=== PATIENT | male | born 1945 | race Caucasian/White ===

== ENCOUNTER → 2017-08-22 13:05 | Outpatient (CLI) | payer MEDICARE, OTHER, SELFPAY ==
--- NOTE | 2017-08-22 | DI.RAD.S_ITS ---
PROCEDURE: XR CERVICAL SPINE 4V OR 5V INDICATIONS: NUMBNESS TECHNIQUE: 5 views of the cervical spine acquired. COMPARISON: [facility], , THORACIC SPINE 2 VIEWS, 02/18/2014, 14:19. FINDINGS: Bones: No fractures or dislocations to the C7 level. Grade 1 anterolisthesis of C4 on C5. There is severe degenerative disc disease with disc space narrowing, endplate sclerosis and osteophyte formation at C5-C6 and C6-C7. Bilateral facet arthropathy in cervical spine, severe C4-C5 on the right and C5-C6 on the left. Moderate C3-C4 bilaterally. Oblique images demonstrate foraminal stenoses at C3-C4 and C4-C5 on the right, and C3-C4 and C5-C6 on the left. Soft tissues: No prevertebral soft tissue swelling. IMPRESSION: 1. Severe degenerative disc disease at C5-C6 and C6-C7. 2. Facet arthropathy, severe at C4-C5 on the right and C5-C6 on the left. 3. Bilateral femoral stenosis as described. Dictated by: Timur Aguilar M.D. on 08/22/2017 at 16:10 Approved by: Timur Aguilar M.D. on 08/22/2017 at 16:16
== END ==
PROVIDERS: PCP Internal Medicine; Visit Provider Student in an Organized Health Care Education/Training Program
DX: M50.30 Other cervical disc degeneration, unspecified cervical region (principal); M47.22 Other spondylosis with radiculopathy, cervical region
CPT/HCPCS: 72050

== ENCOUNTER → 2018-01-10 15:55 | Outpatient (CLI) | payer MEDICARE, OTHER, SELFPAY ==
--- NOTE | 2018-01-10 | DI.RAD.S_ITS ---
PROCEDURE: XR CHEST 2V INDICATIONS: ACUTE BRONCHITIS TECHNIQUE: 2 views of the chest were acquired. COMPARISON: [facility], , CHEST 1 VIEW, 01/20/2014, 15:41. FINDINGS: Surgical changes and devices: None. Lungs and pleura: No pleural effusions or pneumothorax. Blunting of the right costophrenic angle as before. No acute consolidation. There is scattered subsegmental atelectasis and/or scarring . Lungs are mildly hyperinflated in keeping with chronic obstructive physiology. Mediastinum: Mediastinal contours are normal. Heart size is normal. Bones and chest wall: No suspicious bony abnormalities. Soft tissues appear unremarkable. IMPRESSION: No acute disease. No interval change Hyperinflated lungs in keeping with chronic obstructive physiology Dictated by: Tc Finn M.D. on 01/10/2018 at 16:38 Approved by: Tc Finn M.D. on 01/10/2018 at 16:40
== END ==
PROVIDERS: PCP Internal Medicine; Visit Provider Internal Medicine
DX: J20.9 Acute bronchitis, unspecified (principal)
CPT/HCPCS: 71046

== ENCOUNTER → 2018-05-24 13:40 | Outpatient (CLI) | payer MEDICARE, OTHER, SELFPAY ==
--- NOTE | 2018-05-24 | DI.RAD.S_ITS ---
PROCEDURE: XR CHEST 2V INDICATIONS: Acute bronchitis TECHNIQUE: 2 views of the chest were acquired. COMPARISON: [facility], CR, XR CHEST 2V, 01/10/2018, 16:04. FINDINGS: Surgical changes and devices: None. Lungs and pleura: Decreased buccal vascular markings and bilateral hilar region are seen with mild bronchial wall thickening consistent with reactive airway disease. No definite focal infiltrate. No pleural effusions or pneumothorax. Mediastinum: Mediastinal contours are normal. Heart size is normal. Bones and chest wall: No suspicious bony abnormalities. Soft tissues appear unremarkable. IMPRESSION: Findings consistent with reactive airway disease such as orchitis or asthma. No definite focal infiltrate. Dictated by: Seun Wheeler M.D. on 05/24/2018 at 14:56 Approved by: Seun Wheeler M.D. on 05/24/2018 at 14:57
== END ==
PROVIDERS: PCP Internal Medicine; Visit Provider Physician Assistant
DX: J20.9 Acute bronchitis, unspecified (principal)
CPT/HCPCS: 71046

== ENCOUNTER → 2018-10-31 12:19 | Outpatient (CLI) | payer MEDICARE, OTHER, SELFPAY ==
--- NOTE | 2018-10-31 | DI.US.S_ITS ---
PROCEDURE: US THYROID INDICATIONS: THYROID NODULE,ABNORMAL WEIGHT LOSS TECHNIQUE: Real-time scanning was performed of the thyroid gland, with image documentation. COMPARISON: None. FINDINGS: Right: Thyroid lobe measures 6.3 x 2.5 x 2.9 cm, and is homogeneous in echotexture. Left: Thyroid lobe measures 4.7 x 1.8 x 2.3 cm, and is homogenous in echotexture. Isthmus: 5.0 mm thick. Nodule number: 1 Location: Right mid Size: 2.4 x 2.2 x 2.2 cm. Composition: Predominantly solid Echogenicity: Hypoechoic Shape: wider than tall. Margins: Smooth Echogenic foci: None Total points: 4 ACR TI-RADS category: Moderately suspicious Nodule number: 2 Location: Right mid Size: 0.8 x 0.9 x 0.8 cm. Composition: Cystic Echogenicity: Anechoic Shape: wider than tall. Margins: Smooth Echogenic foci: None Total points: 0 ACR TI-RADS category: Benign Nodule number: 3 Location: Right mid inferior Size: 0.6 x 0.6 x 0.7 cm. Composition: Predominately solid Echogenicity: Hypoechoic Shape: wider than tall. Margins: Smooth Echogenic foci: None Total points: 4 ACR TI-RADS category: Moderately suspicious Nodule number: 4 Location: Left mid Size: 1.5 x 1.1 x 1.2 cm. Composition: Predominately solid Echogenicity: Hypoechoic Shape: wider than tall. Margins: Smooth Echogenic foci: None Total points: 4 ACR TI-RADS category: Moderately suspicious IMPRESSION: Bilateral thyroid nodules. Recommend sonographically directed fine needle aspiration involving the right # 1 nodule and continued sonographic surveillance as recommended below. ACR TI-RADS definitions and recommendations: TI-RADS 1 (benign): 0 points. FNA not needed. TI-RADS 2 (not suspicious): 2 points. FNA not needed. TI-RADS 3 (mildly suspicious): 3 points. * FNA if 2.5 cm or larger, follow up if 1.5 cm or larger (at 1, 3, and 5 years). TI-RADS 4 (moderately suspicious): 4-6 points. * FNA if 1.5 cm or larger, follow up if 1 cm or larger (at 1, 2, 3, and 5 years). TI-RADS 5 (highly suspicious): 7 points or more. * FNA if 1 cm or larger, follow up if 0.5 cm or larger (every year for 5 years). Dictated by: Chad PALMA Interpreted: Genaro Saonn MD on 10/31/2018 at 15:41 Approved by: Genaro Sanon M.D. on 10/31/2018 at 16:24
[2018-10-31 13:06] LABS: Creatine Kinase 31 U/L (55-170)
[2018-10-31 13:51] LABS: Alanine Aminotransferase 17 IU/L (21-72); Albumin 4.1 g/dL (3.5-5.0); Albumin Globulin Ratio 1.6 (1.0-2.8); Alkaline Phosphatase 56 U/L (38-126); Aspartate Aminotransferase 29 IU/L (17-59); BUN Creatinine Ratio 32.9 (6-22); Bilirubin Total 0.7 mg/dL (0.2-1.3); Blood Urea Nitrogen 23 mg/dL (9-20); Calcium 9.6 mg/dL (8.4-10.2); Carbon Dioxide 27 mmol/L (22-32); Chloride 103 mmol/L (98-107); Estimated Glomerular Filt Rate > 60.0 mL/min (>60); Globulin 2.5 g/dL (1.7-4.1); Glucose 137 mg/dL (80-110); HEMOLYSIS < 15 (0-50); Potassium 4.4 mmol/L (3.4-5.1); Sodium 140 mmol/L (137-145); Total Protein 6.6 g/dL (6.3-8.2)
--- NOTE | 2018-10-31 14:13 | DI.CT.S_ITS ---
PROCEDURE: CT CHEST ABDOMEN W CON INDICATIONS: Abnormal weight loss TECHNIQUE: After the administration of intravenous contrast, 5 mm thick sections acquired from the lung apices to the iliac crests. 5 mm coronal and sagittal reformats were performed, with additional 7 mm coronal MIP reformats through the lungs. For radiation dose reduction, the following was used: automated exposure control, adjustment of mA and/or kV according to patient size. COMPARISON: [facility], CT, THORAX WITHOUT CONTRAST, 10/21/2015, 9:15. FINDINGS: Image quality: Excellent. CHEST: Lungs and pleura: No acute airspace opacities. Nodular scarring within the anterior basilar aspect of the right lower lobe is present, as before. Right posterior lung base scarring is present, as before. Nodular thickening of the minor fissure measuring 5 mm is unchanged. Scarring within the left posterior lung base is present, as before. 4 mm diameter nodule within the left upper lobe. The is unchanged. 2 mm diameter nodule within the superior segment left lower lobe adjacent to major fissure is unchanged. A 4 mm diameter nodular thickening of the superior aspect of the left major fissure is unchanged. No pleural effusions or pneumothorax. Central and peripheral airways appear patent and normal in caliber. Mediastinum: Heart size is normal. No pericardial effusion. The anterior mediastinal soft tissue density focus measuring 29 mm is not significantly changed. Thoracic aorta and central pulmonary arteries are normal in size. Esophagus is normal in caliber. No hiatal hernia. Chest wall: No axillary or supraclavicular adenopathy by size criteria. Thyroid gland demonstrates no change in bilateral low density nodules, largest of which is in the right lobe anteriorly measuring 22 mm. ABDOMEN: Solid organs: Liver is normal in size and enhancement. Gallbladder demonstrates multiple calculi within its lumen. Biliary system is non dilated. Pancreas enhances normally. Spleen is normal in size and enhancement. No adrenal nodules. Kidneys demonstrate normal size and enhancement, without hydronephrosis. Peritoneum and bowel: Bowel loops demonstrate normal wall thickness and caliber. No free fluid or air. Nodes and vessels: No retroperitoneal or mesenteric adenopathy by size criteria. Aorta and inferior vena cava are normal in size. Bones: No suspicious bony lesions. No vertebral body compression fractures. Miscellaneous: No ventral hernias. IMPRESSION: 1. No change in small bilateral pulmonary nodules. 2. Cholelithiasis. 3. Bilateral thyroid nodules as seen by same-day ultrasound. Dictated by: Seun Wheeler M.D. on 10/31/2018 at 16:29 Approved by: Fabricio Hooper M.D. on 10/31/2018 at 16:46
[2018-10-31 15:01] LABS: Lactate Dehydrogenase 324 U/L (313-618)
[2018-11-02 17:02] LABS: Aldolase 3.4 U/L (< 8.2)
[2018-11-02 18:42] LABS: Myoglobin < 26 mcg/L (< 96)
== END ==
PROVIDERS: PCP Internal Medicine; Visit Provider Internal Medicine
DX: E04.2 Nontoxic multinodular goiter (principal); R63.4 Abnormal weight loss; R91.8 Other nonspecific abnormal finding of lung field; K80.20 Calculus of gallbladder without cholecystitis without obstruction; M62.50 Muscle wasting and atrophy, not elsewhere classified, unspecified site
CPT/HCPCS: 36415; 71260; 74160; 76536; 80053; 82085; 82550; 83615; 83874; Q9967

== ENCOUNTER → 2018-11-21 06:48 | Outpatient (CLI) | payer MEDICARE, OTHER, SELFPAY ==
--- NOTE | 2018-11-21 | DI.ECHO.S_ITS ---
[facility] +---------+ : : [address] [place] : : : : [id number] : : : : Phone: [phone]+ Echocardiogram Report + + :Name: JUNE BREWSTER Study Date: 11/21/2018 Height: 71 in : :[facility] Weight: 175 lb: : Gender: Male BSA: 2.0 m2 : :: 1945 Age: 73 yrs BP: 98/55 mmHg: :Reason For Study: AFIB : : Performed By: Lalo Galvez : :Referring: DAVID JANSEN : + + Interpretation Summary The left ventricle is normal in size. Left ventricular ejection fraction is estimated to be 50 +/- 5%. The right ventricle is mildly dilated. The right ventricular systolic function is normal. There is mild to moderate mitral regurgitation. There is moderate tricuspid regurgitation. The right ventricular systolic pressure is estimated to be at least 30 mmHg based on an estimated right atrial pressure of 3 mm Hg. The ascending aorta is mildly enlarged. Procedure: A two-dimensional transthoracic echocardiogram with color flow and Doppler was performed. The study quality was technically good. The patient had a heart rate of 59-82 beats per minute. The patient was in atrial fibrillation with controlled ventricular rate during the exam. Left Ventricle: The left ventricle is normal in size. There is normal left ventricular wall thickness. There is no thrombus. Left ventricular ejection fraction is estimated to be 50 +/- 5%. There are no focal wall motion abnormalities. E/E' med: 10.2. Right Ventricle: The right ventricle is mildly dilated. The right ventricular systolic function is normal. Atria: Both atria are severely dilated. The interatrial septum is intact with no evidence for an atrial septal defect. Mitral Valve: There is mild mitral annular calcification. There is systolic anterior motion of the chordal apparatus. There is mild to moderate mitral regurgitation. Aortic Valve: The aortic valve is trileaflet. The aortic valve is slightly calcified. The aortic valve opens well. There is no aortic valve stenosis. No aortic regurgitation is present. Tricuspid Valve: The tricuspid valve is normal. There is moderate tricuspid regurgitation. The right ventricular systolic pressure is estimated to be at least 30 mmHg based on an estimated right atrial pressure of 3 mm Hg. Pulmonic Valve: The pulmonic valve is normal in structure and function. There is trace pulmonic regurgitation. Great Vessels: The aortic root is normal size. The ascending aorta is mildly enlarged. The pulmonary artery is normal size. The IVC is dilated (diameter is greater than 2.1 cm) yet it collapses greater than 50% with a sniff. This suggests a right atrial pressure of 8 mm Hg. Pericardium/ Pleura There is no pericardial effusion. There is no pleural effusion. MMode/2D Measurements & Calculations LVIDd: 4.7 cm LVOT diam: 2.2 cm LVIDs: 2.8 cm Ao root diam: 3.2 cm FS: 41.5 % Aortic Jxn: 2.8 cm EPSS: 0.14 cm asc Aorta Diam: 3.7 cm IVSd: 1.0 cm Ao Arch Diam (Prox Trans): 2.8 cm LVPWd: 0.90 cm LV lozano. diameter/BSA (cm/m^2): 2.4 LV sys. diameter/BSA (cm/m^2): 1.4 LA dimension: 5.0 cm RA long axis: 7.2 cm LA A2 area: 29.3 cm2 RA area: 30.5 cm2 LA A4 area: 35.6 cm2 RA vol: 109.4 ml LA length (vol): 8.4 cm RA : 54.9 ml/m2 LA vol: 104.7 ml IVC diam: 2.5 cm LA vol index: 52.5 ml/m2 RVD1 (basal): 4.6 cm RVD2 (mid): 4.4 cm Doppler Measurements & Calculations Ao V2 max: 134.7 cm/sec LVOT Max Andres: 83.6 cm/sec Ao V2 mean: 103.8 cm/sec LV V1 max P.8 mmHg Ao max P.3 mmHg LV V1 VTI: 17.7 cm Ao mean P.6 mmHg SLOANE(I,D): 2.5 cm2 Ao V2 VTI: 27.8 cm SLOANE(V,D): 2.5 cm2 sev ratio: 0.64 SLOANE indexed to BSA (cm^2/m^2): 1.3 MV E max andres: 71.4 cm/sec TR max andres: 232.9 cm/sec MV A max andres: 1.5 cm/sec TR max P.8 mmHg MV E/A: 47.9 PA V2 max: 103.5 cm/sec Med Peak E' Andres: 7.0 cm/sec PA V2 mean: 74.8 cm/sec E/E' med: 10.2 PA mean P.4 mmHg Lat Peak E' Andres: 10.3 cm/sec PA pr(Accel): 36.6 mmHg E/E' lat: 6.9 PA Accel Time: 0.08 sec E/e' average: 8.6 MV dec time: 0.17 sec SV(LVOT): 70.4 ml Reading Physician:06:04 PM
== END ==
PROVIDERS: PCP Internal Medicine; Referring Provider Emergency Medicine Emergency Medical Services; Visit Provider Internal Medicine Cardiovascular Disease
DX: I08.1 Rheumatic disorders of both mitral and tricuspid valves (principal); I48.0 Paroxysmal atrial fibrillation; I77.89 Other specified disorders of arteries and arterioles
CPT/HCPCS: 93306

== ENCOUNTER → 2018-12-31 07:56 | Outpatient (CLI) | payer MEDICARE, OTHER, SELFPAY ==
--- NOTE | 2018-12-31 | DI.US.S_ITS ---
PROCEDURE: US FINE NEEDLE ASPIRATION INDICATIONS: BILATERAL THYROID NODULES TECHNIQUE: The indications, alternatives, benefits, risks, and complications of the procedure were explained to the patient. Written informed consent was obtained and placed in the chart. The thyroid region was examined sonographically and a site was chosen for ultrasound guided percutaneous sampling. The skin was prepared and draped in the usual fashion, and anesthetized with 1% lidocaine infiltrated from the skin down to the thyroid gland. Multiple passes were then performed, with contents emptied into an appropriate pathology specimen container. A bandage was applied to the area of access at completion of the study. COMPARISON: None. FINDINGS: Location(s) of lesion(s) sampled: Right thyroid lobe [place]: 25 gauge hypodermic needles. Number of passes: 9 Medications: 1% lidocaine for local anaesthesia. Complications: None. IMPRESSION: Successful ultrasound-guided thyroid nodule fine needle aspiration, with cytology results pending. Please see chart below for management recommendations based on cytology results. [facility] ReportingRecommendationsNon-diagnostic* Repeat US-guided FNA, with on-site cytology evaluation if possible. * Repeated non-diagnostic nodules without high suspicion US features: close observation vs surgical consult. * Consider surgery if nodule has high suspicion US features, grows >20% in 2 dimensions on followup, or patient has clinical risk factors for malignancy. Benign* If nodule has high suspicion US features: repeat US and FNA within 12 months. * If nodule has low to intermediate suspicion US features: repeat US at 12-24 months. If nodule grows (20% increase in at least 2 dimensions, with minimal increase of 2 mm or >50% change in volume), or development of new suspicious US features, then repeat FNA or continue followup. * If nodule has very low suspicion US features: followup US at >24 months. Atypia of undetermined significance, follicular lesion of undetermined significanceRepeat FNA, molecular testing, followup US, or surgical consult.Follicular neoplasm, suspicious for follicular neoplasmSurgical consult; also consider molecular testing. Suspicious for malignancySurgical consult.MalignantSurgical consult. Dictated by: Timur Aguilar M.D. on 12/31/2018 at 11:06 Approved by: Timur Aguilar M.D. on 12/31/2018 at 11:07
--- NOTE | 2018-12-31 | PATH_ITS ---
Note [facility] Accession Number: [id number] TESTS RESULT FLAG UNITS REF RANGE LAB Clinician Provided Cytology Information No. of containers..01 ThinPrep Vial No. of containers..18 Previously Prepared Cytology Slide RIGHT THYROID NODULE DIAGNOSIS: 02 RIGHT THYROID NODULE NONDIAGNOSTIC. BETHESDA CATEGORY I. NONDIAGNOSTIC: CYST FLUID ONLY. COMMENT Only a rare group of benign follicular cells is identified. Overall, there is insufficient cellularity for diagnosis. Pathologist ICD10: 02 E04.1 02 Milady Bermudez MD, Pathologist NPI- [id number] Karson Hawley, Reaming Machine Operator ([facility]) 01 30 CC, PALE PINK, CLEAR RECEIVED: 9 ALCOHOL FIXED AND 9 QUICK STAINED SLIDES WITH 1 RNA VIAL FOR FURTHER TESTING. /VDU 01/01/2019 0802 [facility] FLAG LEGEND: L-Low Normal,H-High Normal,LL-Alert Low,HH-Alert High <-Panic Low,>-Panic High,A-Abnormal,AA-Critical Abnormal Performed at: 01 =Z [facility] [address], [place] [address] Brannon Le MD, 02 [facility] [address] [place] [id number] Milady Bermudez MD, Performed at: 01 [facility] [address], [place], [place] [id number] MD Brannon Le MD Phone: [phone]
--- NOTE | 2018-12-31 09:30 | PATH_ITS ---
Note [facility] Accession Number: [id number] TESTS RESULT FLAG UNITS REF RANGE LAB Clinician Provided Cytology Information No. of containers..01 ThinPrep Vial No. of containers..00 Previously Prepared Cytology Slide LEFT THYROID NODULE DIAGNOSIS: LEFT THYROID NODULE BENIGN. BETHESDA CATEGORY II. SPECIMEN CONSISTS OF BENIGN FOLLICULAR CELLS, HEMOSIDERIN-LADEN MACROPHAGES, COLLOID, AND BLOOD. THIS PATTERN IS CONSISTENT WITH A BENIGN FOLLICULAR NODULE. Pathologist ICD10: 02 E04.1 02 Milady Bermudez MD, Pathologist NPI- [id number] [place], Counsel ([facility]) 01 30 CC, PINK, CLEAR RECEIVED: 5 ALCOHOL FIXED AND 5 QUICK STAINED SLIDES WITH 1 RNA VIAL FOR FURTHER TESTING. /VDU 01/01/2019 0803 [facility] FLAG LEGEND: L-Low Normal,H-High Normal,LL-Alert Low,HH-Alert High <-Panic Low,>-Panic High,A-Abnormal,AA-Critical Abnormal Performed at: 01 =Z [facility] [address] [facility], [place] [address] Brannon Le MD, 02 [facility] [address] [place] [phone] Milady Bermudez MD, Specimen Comment: A duplicate report has been generated due to demographic updates. Performed at: [address] [facility] [address] [facility], [place], [place] [id number] MD Brannon Le MD Phone: [phone]
== END ==
PROVIDERS: PCP Internal Medicine; Visit Provider Physician Assistant
DX: E04.2 Nontoxic multinodular goiter (principal); I48.0 Paroxysmal atrial fibrillation
CPT/HCPCS: 10005; 10006

== ENCOUNTER → 2019-10-11 08:46 | Outpatient (CLI) | payer MEDICARE, OTHER, SELFPAY ==
--- NOTE | 2019-10-11 | DI.RAD.S_ITS ---
PROCEDURE: FL BARIUM SWALLOW W SPEECH INDICATIONS: Dysphagia, unspecified COMPARISON: None. TECHNIQUE: Examination was conducted in conjunction with speech pathology per standard protocol. In the lateral projection, filming was performed of the patient swallowing. AP projection filming may also be performed with patient swallowing. COMPARISON: FINDINGS: Function: The oral preparatory phase appears normal, with proper containment. Laryngeal penetration was visualized with thin liquids. There was also aspiration identified. Some clearance with seen with clearing mechanisms and coughing. Significant pooling of material is seen in the vallecula. With thick liquids and with solid foods there was normal motility and transit of material. Morphology: No cricopharyngeal bar is identified. No cervical esophageal webs. No Zenker's diverticulum. No strictures. IMPRESSION: Laryngeal penetration and mild aspiration with some clearance upon consumption of thin liquids. Please see speech pathology report for further details. Dictated by: Luis Eldridge M.D. on 10/11/2019 at 11:00 Approved by: Luis Eldridge M.D. on 10/11/2019 at 11:03
--- NOTE | 2019-10-11 19:10 | ST.SWALLOW ---
Visit Care Team Role Provider Type Brigid Deluna MD Attending Provider Non-Staff Primary Care Provider Referring Provider Specialty: Internal Medicine Address: [address] [place] [address], [id number] Email: [email or web address] Modified Barium Swallow Study ACCESS MANAGER Modified Barium Swallow Study Start: 10/11/19 16:36 Freq: Status: Active Protocol: Document 10/11/19 16:36 LL (Rec: 10/11/19 17:01 LL [id number]) Modified Barium Swallow Study Total Time Visit Start Time 09:15 Visit Stop Time 09:50 Total Visit Minutes 35 Referral Referring Physician Brigid Deluna MD Reason for Referral Dysphagia Setting Setting Outpatient Care Patient Information Identification Type Name Patient History Ranjeet is an 74-year-old male referred by Dr. Brigid Deluna due to new onset of dysphagia with liquids and weight loss over the last several months. Further case history was obtained prior to MBS procedure. Ranjeet described that he feels the sensation that his swallowing function ?just stops? and that he has extreme difficulty initiating and completing swallows. He reported significant weight loss, at least 15 lbs over the last several months and loss of appetite. Ranjeet consumes smaller portions due to his loss of appetite and swallowing difficulty. He reported that he now consumes more protein shakes to provide the daily nutrition he needs. Subjective Observations Ranjeet arrived on time and provided case history. He was able to follow all instructions. Patient Positioning Position View Lat-A/P Imaging Lateral View Textures Administered Trials Presented Thin Liquid via Spoon,Thin Liquid via Cup,[employer] Liquid via Spoon,[employer] Liquid via Cup,Honey Liquid via Spoon, Pudding Thick Liquid via Spoon ,Regular Textures,Barium Tablet Oral Phase Source: MBSIMP (TM) (C) Bolus Specific Scoring Grid Lip Closure WFL Tongue Control During Bolus Hold WFL Bolus Prep/Mastication WFL Bolus Transport/Lingual Motion Mild Impairment A/P Lingual Propulsion Delay 1-2 second delay Oral Residue Mild Impairment Residue Clearing WFL Nasal Regurgitation No Additional Oral Phase Observations Oral Peripheral Phase: Symmetrical structures. Generalized weakness. Concavity of cheeks (sunken cheeks) likely due to significant weight loss and generalized weakness. Lingual incoordination and fasciculations observed. Ranjeet has upper and lower bridges and caps with natural teeth surrounding implants. Oral Phase: Mildly impaired. Mild oral residue present which cleared with subsequent swallows, not abnormal for intake of barium contrast. Mildly delayed initiation of tongue motion. Pharyngeal Phase Source: MBSIMP (TM) (C) Bolus Specific Scoring Grid Delayed Initiation of Pharyngeal Swallow Yes: bolus head in pyriforms x 1 occurrence Soft Palate Elevation WFL Tongue Base Strength/Range of Motion Moderate Impairment Residue Along the Tongue Base Yes: mild-moderate Clearance of Residue Along Tongue Base Minimal Impairment Laryngeal Elevation Moderate Impairment Anterior Hyoid Movement Moderate Impairment Epiglottic Range of Motion Moderate Impairment Vallecular Residue Yes: moderate Clearance of Vallecular Residue Moderate Impairment Laryngeal Vestibular Closure Moderate Impairment Pharyngeal Stripping Wave Moderate Impairment Posterior Pharyngeal Wall Residue Yes: mild Clearance of Posterior Pharyngeal Wall Minimal Impairment Residue Upper Esophageal Sphincter Opening Mild Impairment Residue in the Pyriform Sinuses Yes: mild Clearance of Residue in the Pyriform Minimal Impairment Sinuses Pharyngoesophageal Backflow Observed No Additional Pharyngeal Phase Observations Pharyngeal Phase: Ranjeet presented with moderately reduced laryngeal elevation and anterior hyoid movement resulting in incomplete to no epiglottic inversion. Due to incomplete to no epiglottic inversion, penetration and aspiration were observed with all trials of thin liquid (e.g ., tsp, small cup sip, small cup sip with chin tuck). Chin tuck was implemented to increase airway protection with thin liquids, however no increase or change in airway protection was observed. Throat clearing and coughing were implemented to expel contrast out of airway with minimal clearance observed. Ranjeet?s coughing and throat clearing appeared weak. Remaining thin contrast silently aspirated. No penetration or aspiration was observed with nectar thick liquid, honey thick liquid, pudding, and pudding with cookie. Due to incomplete to no epiglottic inversion, Ranjeet also presented with moderate vallecular residue and mild- moderate amounts of that residue were observed to be pooling into the pyriform sinuses after the swallow. This mild-moderate amount of pooling from the valleculae to the pyriform sinuses decreases Ranjeet?s airway protection and increases his risk for penetration and/or aspiration after the swallow. Ranjeet independently initiated multiple (2-4) swallows throughout all trials with minimal-mild clearance of pharyngeal residues. A second dry swallow (double swallow) and throat clear with reswallow were implemented to assist in clearing pharyngeal residues to improve Ranjeet?s airway protection. Both compensatory swallow strategies resulted in slightly increased airway protection, however mild pharyngeal residues were still present. It was observed that during Ranjeet?s multiple swallows, the epiglottis would become ?stuck? horizontally angled inferiorly and appeared flaccid. It was also observed that Ranjeet presented with a delayed swallow reflex when consuming thickened liquids, pudding, and pudding with cookie. His initiation of pharyngeal swallow varied throughout the MBS procedure. A majority of the swallows would initiate at the base of the valleculae or posterior laryngeal surface of epiglottis, with one instance of the bolus head in the pyriform sinuses at the time of initiating the swallow. A/P View Textures Administered Trials Presented Barium Tablet A/P View Observations Additional Observations Slowed bolus flow through esophagus and into stomach was observed. Barium tablet did not pass into the stomach until 15-20 seconds after consuming barium tablet. Unable to fully assess pharyngeal contraction. Ranjeet swallowed the tablet before video footage started. Clinical Impressions Dysphagia Type Moderate-severe oropharyngeal dysphagia Findings See above oral and pharyngeal observation summaries. Recommend that Ranjeet consume mechanical soft texture diet with nectar thick liquids with use of several compensatory swallow strategies to clear pharyngeal residue(s), increase airway protection, and reduce risk for aspiration / aspiration pneumonia. Free water protocol with strict oral care recommended. Recommended swallow strategies : upright 90 degree for all oral intake, double swallow and/or throat clear with reswallow after every bite/sip , and small bites/sips. Reviewed results with Ranjeet after MBS. ACCESS MANAGER also called Ranjeet after writing this report to further review results, answer any questions, and review diet recommendations / swallow recommendations until he is able to be seen for outpatient speech therapy. Rehabilitation Potential Fair Patient Appropriate for Therapy Yes Recommendations Diet Liquids Order [employer] Diet Order Mechanical Soft Medication Recommendation As Tolerated,Whole,One at a Time Additional Dietary Needs Single Sips,Controlled Sips Aspiration Precautions Recommended Precautions Upright at 90 Degrees,Small Bites/Sips,Double Swallow Additional Precautions Throat clear with reswallow Treatment Plan Therapy Recommendations Inpatient Speech Therapy Recommended Referrals Primary Care Physician, Neurology Compensatory Strategies Recommendations Sitting Upright (90 deg), Double Swallow,Small Bites and Sips Additional Compensatory Strategies Throat clear with reswallow. Recommended Short Term Goals Ranjeet will tolerate mechanical soft texture diet with nectar thick liquids without any overt s/sx of aspiration. Ranjeet will demonstrate understanding of MBS results, free water protocol, diet recommendations, and compensatory swallow strategies to improve swallow safety. Ranjeet will complete recommended oral motor and laryngeal strengthening exercises to improve swallow function. Ranjeet will perform safe swallow strategies independently to increase safety with oral intake. Forestry Hunter Goals Ranjeet will tolerate least restrictive diet to meet his nutrition and hydration needs. 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 Additional Recommendations/Comments * Recommend outpatient speech therapy to address oropharyngeal dysphagia. * Recommend follow-up with primary care physician. * Recommend neurology consult. Ranjeet reported that he has a neurology appointment at with Dr. Torres on November 14. Recommend that Ranjeet visits with neurologist earlier than November 14.
== END ==
PROVIDERS: PCP Internal Medicine; Referring Provider Internal Medicine; Visit Provider Internal Medicine
DX: R13.10 Dysphagia, unspecified (principal); J98.8 Other specified respiratory disorders
CPT/HCPCS: 74230; 92611

== ENCOUNTER → 2020-02-05 11:12 | Outpatient (ROUT) | payer MEDICARE, OTHER, SELFPAY | PROVIDERS: PCP Internal Medicine; Visit Provider Dermatology | DX: L03.211 Cellulitis of face (principal) | CPT/HCPCS: 87070; 87205 ==

== ENCOUNTER → 2020-03-13 18:34 | Outpatient (ROUT) | payer MEDICARE, OTHER, SELFPAY ==
[2020-03-13 19:10] LABS: HEMOLYSIS < 15 (0-50); Iron 77 ug/dL (49-181)
[2020-03-13 19:11] LABS: Add Manual Diff / Slide Review NO; Basophils Absolute Auto 0 /uL (0-100); Basophils Percent Auto 0.5 % (0-2); Eosinophils Absolute Auto 200 /uL (0-450); Eosinophils Percent Auto 2.9 % (2-4); Hematocrit 41.7 % (41-53); Hemoglobin 13.6 g/dL (13.5-17.5); Lymphocytes Absolute Auto 1900 /uL (1100-4500); Lymphocytes Percent Auto 25.8 % (25-40); Mean Corpuscular HGB Conc 32.7 % (30-36); Mean Corpuscular Hemoglobin 30.9 PG (26-34); Mean Corpuscular Volume 94.6 fL (80-100); Monocytes Absolute Auto 500 /uL (0-900); Monocytes Percent Auto 7.2 % (3-14); Neutrophils Absolute Auto 4700 /uL (1500-7000); Neutrophils Percent Auto 63.6 % (50-75); Platelet Count 213 X10^3/uL (150-400); Red Blood Cell Count 4.41 X10^6/uL (4.5-5.9); Red Cell Distribution Width 12.6 % (11.6-14.8); White Blood Cell Count 7.3 X10^3/uL (4.5-11.0)
[2020-03-13 19:16] LABS: Alanine Aminotransferase 23 IU/L (<50); Albumin 4.1 g/dL (3.5-5.0); Albumin Globulin Ratio 1.9 (1.0-2.8); Alkaline Phosphatase 52 U/L (38-126); Aspartate Aminotransferase 37 IU/L (17-59); BUN Creatinine Ratio 28.9 (6-22); Bilirubin Total 0.6 mg/dL (0.2-1.3); Blood Urea Nitrogen 24 mg/dL (9-20); Calcium 9.3 mg/dL (8.4-10.2); Carbon Dioxide 32 mmol/L (22-32); Chloride 104 mmol/L (98-107); Estimated Glomerular Filt Rate > 60.0 mL/min (>60); Globulin 2.2 g/dL (1.7-4.1); Glucose 87 mg/dL (80-110); HEMOLYSIS < 15 (0-50); Potassium 4.2 mmol/L (3.4-5.1); Sodium 139 mmol/L (137-145); Total Protein 6.3 g/dL (6.3-8.2)
[2020-03-13 19:22] LABS: Percent Iron Saturation 23 % (20-50); Total Iron Binding Capacity 336 ug/dL (261-462); Transferrin 240 mg/dL (206-381)
[2020-03-13 19:48] LABS: Ferritin 24 ng/mL (18-464)
== END ==
PROVIDERS: PCP Internal Medicine; Visit Provider Physician Assistant
DX: I48.0 Paroxysmal atrial fibrillation (principal); R53.1 Weakness; R53.83 Other fatigue
CPT/HCPCS: 80053; 82728; 83540; 83550; 85025

== ENCOUNTER → 2020-05-18 18:23 | Outpatient (ROUT) | payer MEDICARE, OTHER, SELFPAY | PROVIDERS: PCP Internal Medicine; Visit Provider Family Medicine | DX: R39.9 Unspecified symptoms and signs involving the genitourinary system (principal) | CPT/HCPCS: 87077; 87086; 87186 ==

== ENCOUNTER 2021-08-31 12:30 | Outpatient (RCR) | payer MEDICARE, OTHER, SELFPAY ==
--- NOTE | 2021-07-07 19:03 | ST.OPIE ---
Visit Care Team Role Provider Type Kevin Marie MD Family Provider Non-Staff Primary Care Provider Specialty: Internal Medicine Address: [address] [place] [address], [id number] Email: Jatin Bowden MD Attending Provider Physician Referring Provider Specialty: Ear, Nose, Throat Address: [address] [place] [address], [id number] Email: [email or web address] Speech-Language Pathology Initial Evaluation SYSTEM TECHNOLOGIST Clinical Instructor Line Start: 07/07/21 19:02 Freq: Status: Active Protocol: Document 07/07/21 19:02 SYLVAIN (Rec: 07/07/21 19:02 SYLVAIN [id number]) Clinical Instructor Signature Clinical Instructor Clinical Instructor Yes SYSTEM TECHNOLOGIST Clinical Swallow Evaluation Start: 07/07/21 15:10 Freq: Status: Active Protocol: Document 07/07/21 15:11 EK (Rec: 07/07/21 15:14 EK [id number]) Clinical Swallow Evaluation Session Time Visit Start Time 15:30 Visit Stop Time 14:35 Total Visit Minutes 65 Visit Information Visit Number 02/[id number] authorized visits Plan of Care Dates 07/07/2021-10/02/21 Insurance Information Medicare Referral Referring Provider Jatin Bowden Reason for Referral Dysphagia Setting Assessment Location Outpatient Care Visit Type Note Type Initial evaluation Next Note Type Next Note Type Treatment Note Patient Information Identification Type Name,ID Card History Pt is a 76-year-old male who has been experiencing xerostomia, drooling, and difficulty swallowing. Pt describes his swallow as if it shuts down on the right side . He states that he has difficulty getting enough moisture in his mouth to swallow food then when it is swallowed it feels stuck in his throat. Denies any other right sided weakness (but stated that he has overall became weaker in the last several years) and has no known history of strokes. Swallowing difficulties have been occurring since 2019. He previously had a MBSS completed but did not follow up for treatment. The findings of that MBSS indicated that there impaired epiglottic inversion as well as penetration/aspiration on thin liquids. However, upon review of the video today, only one instance of flash penetration noted. Pt reported that difficulty managing saliva has been occurring for approximately the last 6 months and he states that it is embarrassing as it happens at various points throughout the day. Pt reported that he has lost 35 pounds about 2 years which may be partially due to depression and not feeling interested in eating. Pt has been drinking milkshakes to supplement calorie intake and reports no difficulty swallowing the milkshakes. Pt has recently begun taking a anti-depressant and is feeling more balanced. Pt has been to various specialists to rule out neurological diseases and cancer. Subjective Observations Pt arrived on time and unaccompanied. Reported by Patient Other Symptoms Difficulty swallowing liquids, Difficulty swallowing solids, Drooling,Weight loss,Other Comment Feels food is getting stuck in his throat primarily on his right side. Weight loss may be due to depression but pt did note that d/t swallowing difficulties, eating can be a slow process so he is needing to supplement his diet with milkshakes. Pt also reported that he has been biting the inside of his cheek and feeling like it is swollen as a result. Current Diet Regular,Thin liquids Baseline Feeding Method Independent in self-feeding Patient Questionnaire No Objective Assessment Mental Status Alert,Responsive,Cooperative Oral Integrity Excessive saliva/Drooling, Xerostomia/Dry mouth Dentition Within normal limits,Decay Lip Function Mild impairment Observation of Lips at Rest Symmetrical Alternating Pucker/Lip Retraction Incoordination Tongue Function Mild impairment Observations of Tongue at Rest Involuntary movement(s) Tongue Protrusion Within normal limits Tongue Retraction Within normal limits Tongue Lateralization Within normal limits Jaw Function Within normal limits Observations of Jaw at Rest Within normal limits Jaw Opening Within normal limits Jaw Closing Within normal limits Hard/Soft Palate Function Within normal limits Observations of Hard/Soft Palate Within normal limits Nasality Within normal limits Phonation Breathy Respiratory Sufficiency Within normal limits Comment Pt complains of xerostomia and drooling. SYSTEM TECHNOLOGIST did note one instance of a buildup of saliva following alternating smile-pucker. While overall tongue movement appeared to be WNL, a slight tremor of the tongue and lips was noted. Pt demonstrated lack of coordination with alternating air in cheeks and when alternating between a smile and pucker. Food and Liquid Trials Position During Assessment Upright (90 degrees) Liquids Trialed Thin Solids Trialed Regular Administration Type Cup single sip,Cup consecutive sips Oral Impairment Mildly impaired Oral Phase Comments Pt noted that occasionally when drinking water, the water escapes before he is ready for it and that he often has to concentrate while chewing/ swallowing. This may indicate some tongue base weakness. His weakness/lack of coordination with his cheeks and lips may also be contributing to his difficulty with saliva management. When trialling a cracker, pt reported that he felt he needed to concentrate in order to adequately chew the cracker and that he had leftover cracker residue in his mouth after the swallow. This cleared after a small sip of water. Pharyngeal Impairment Mildly impaired Pharyngeal Phase Comments Assessed the pt swallowing water from a cup and regular texture cracker. With both textures, swallow was timely and no obvious signs of penetration/aspiration were noted. Pt reported that he felt residue in his throat with both the cracker and the water but did not feel a need to cough. Provided pt education by explaining the mechanism of the swallow and showing/ explaining to him the results of his 2020 MBSS. The results of that study showed that pt had decreased epiglottic inversion causing leftover residue which may be the reason behind his sensation of food being stuck in his throat. Strategies Attempted Chin tuck,Head rotation Response/Comments Trialed chin tuck, head turn to weak side, and head turn to strong side. Pt reported that head turn to strong side felt the most helpful whereas head turn to weak side made swallowing more difficult. Findings Swallowing Function Oropharyngeal phase dysphagia Severity of Swallow Impairment Mildly impaired Contributing Factors to Swallow Reduced oral strength/ Impairment coordination/sensation,Reduced laryngeal excursion,Excessive pharyngeal residue Prognosis Good Based on Cognitive status,Family support Impact on Safety and Functioning Risk for inadequate nutrition/ hydration Comments Eating is tiring so w/ depression, may be at risk for inadequate nutrition Recommendations Swallowing Treatment Yes Recommended Solids Regular Recommended Liquids Thin Safety Precautions/Swallowing Remain upright (90 degrees) Recommendations during all oral intake,Small bites and sips when eating, Alternate liquids and solids Medication Recommendations As Tolerated Education Patient/Caregiver Education Described results of evaluation,Patient expressed understanding of evaluation, Patient expressed agreement with goals & treatment plans, Patient expressed understanding of safety precautions,Patient expressed understanding of feeding recommendations,Patient requires further education/ training Goals Short-term Goals 1. Pt will independently implement safe swallow strategies. 2. Pt will perform swallow exercises in order to improve orapharyngeal function. Long-term Goals 1. Pt will be consistent with HEP to improve and maintain swallow function. 2. Will tolerate regular textures to increase his comfort during eating to WNL.
--- NOTE | 2021-07-07 19:14 | ST.OPIE ---
Visit Care Team Role Provider Type Kevin Marie MD Family Provider Non-Staff Primary Care Provider Specialty: Internal Medicine Address: [address] [place] [address], [address] Email: Jatin Bowden MD Attending Provider Physician Referring Provider Specialty: Ear, Nose, Throat Address: [address] [place] [address], [address] Email: [email or web address] Speech-Language Pathology Initial Evaluation SALES PLANNER Clinical Instructor Line Start: 07/07/21 19:02 Freq: Status: Active Protocol: Document 07/07/21 19:02 SYLVAIN (Rec: 07/07/21 19:02 SYLVAIN [id number]) Clinical Instructor Signature Clinical Instructor Clinical Instructor Yes SALES PLANNER Clinical Swallow Evaluation Start: 07/07/21 15:10 Freq: Status: Active Protocol: Document 07/07/21 15:11 EK (Rec: 07/07/21 15:14 EK [id number]) Clinical Swallow Evaluation Session Time Visit Start Time 15:30 Visit Stop Time 14:35 Total Visit Minutes 65 Visit Information Visit Number 02/22 authorized visits Plan of Care Dates 07/07/2021-10/02/21 Insurance Information Medicare Referral Referring Provider Jatin Bowden Reason for Referral Dysphagia Setting Assessment Location Outpatient Care Visit Type Note Type Initial evaluation Next Note Type Next Note Type Treatment Note Patient Information Identification Type Name,ID Card History Pt is a 76-year-old male who has been experiencing xerostomia, drooling, and difficulty swallowing. Pt describes his swallow as if it shuts down on the right side . He states that he has difficulty getting enough moisture in his mouth to swallow food then when it is swallowed it feels stuck in his throat. Denies any other right sided weakness (but stated that he has overall became weaker in the last several years) and has no known history of strokes. Swallowing difficulties have been occuring since 2019. He previously had a MBSS completed but did not follow up for treatment. The findings of that MBSS indicated that there impaired epiglottic inversion as well as pentration/aspiration on thin liquids. However, upon review of the video today, only one instance of flash pentration noted. Pt reported that difficulty managing saliva has been occuring for approximately the last 6 months and he states that it is embarrssing as it happens at various points throughout the day. Pt reported that he has lost 35 pounds about 2 years which may be partially due to depression and not feeling interested in eating. Pt has been drinking milkshakes to supplement calorie intake and reports no difficulty swallowing the milkshakes. Pt has recently begun taking a anti-depressant and is feeling more balanced. Pt has been to various specialists to rule out neurological diseases and cancer. Subjective Observations Pt arrived on time and unaccompanied. Reported by Patient Other Symptoms Difficulty swallowing liquids, Difficulty swallowing solids, Drooling,Weight loss,Other Comment Feels food is getting stuck in his throat primarily on his right side. Weight loss may be due to depression but pt did note that d/t swallowing difficulties, eating can be a slow process so he is needing to supplement his diet with milkshakes. Pt also reported that he has been biting the inside of his cheek and feeling like it is swollen as a result. Current Diet Regular,Thin liquids Baseline Feeding Method Independent in self-feeding Patient Questionnaire No Objective Assessment Mental Status Alert,Responsive,Cooperative Oral Integrity Excessive saliva/Drooling, Xerostomia/Dry mouth Dentition Within normal limits,Decay Lip Function Mild impairment Observation of Lips at Rest Symmetrical Alternating Pucker/Lip Retraction Incoordination Tongue Function Mild impairment Observations of Tongue at Rest Involuntary movement(s) Tongue Protrusion Within normal limits Tongue Retraction Within normal limits Tongue Lateralization Within normal limits Jaw Function Within normal limits Observations of Jaw at Rest Within normal limits Jaw Opening Within normal limits Jaw Closing Within normal limits Hard/Soft Palate Function Within normal limits Observations of Hard/Soft Palate Within normal limits Nasality Within normal limits Phonation Breathy Respiratory Sufficiency Within normal limits Comment Pt complains of xerostomia and drooling. SALES PLANNER did note one instance of a buildup of saliva following alternating smile-pucker. While overall tongue movement appeared to be WNL, a slight tremor of the tongue and lips was noted. Pt demonstrated lack of coordination with alternating air in cheeks and when alternating between a smile and pucker. Food and Liquid Trials Position During Assessment Upright (90 degrees) Liquids Trialed Thin Solids Trialed Regular Administration Type Cup single sip,Cup consecutive sips Oral Impairment Mildly impaired Oral Phase Comments Pt noted that occassionally when drinking water, the water escapes before he is ready for it and that he often has to concentrate while chewing/ swallowing. This may indicate some tongue base weakness. His weakness/lack of coordination with his cheeks and lips may also be contributing to his difficulty with saliva management. When trialing a cracker, pt reported that he felt he needed to concentrate in order to adequately chew the cracker and that he had leftover cracker residue in his mouth after the swallow. This cleared after a small sip of water. Pharyngeal Impairment Mildly impaired Pharyngeal Phase Comments Assessed the pt swallowing water from a cup and regular texture cracker. With both textures, swallow was timely and no obvious signs of pentration/aspiration were noted. Pt reported that he felt residue in his throat with both the cracker and the water but did not feel a need to cough. Provided pt education by explaining the mechanism of the swallow and showing/ explaining to him the results of his 2020 MBSS. The results of that study showed that pt had decreased epiglottic inversion causing leftover residue which may be the reason behind his sensation of food being stuck in his throat. Strategies Attempted Chin tuck,Head rotation Response/Comments Trialed chin tuck, head turn to weak side, and head turn to strong side. Pt reported that head turn to strong side felt the most helpful whereas head turn to weak side made swallowing more difficult. Findings Swallowing Function Oropharyngeal phase dysphagia Severity of Swallow Impairment Mildly impaired Contributing Factors to Swallow Reduced oral strength/ Impairment coordination/sensation,Reduced laryngeal excursion,Excessive pharyngeal residue Prognosis Good Based on Cognitive status,Family support Impact on Safety and Functioning Risk for inadequate nutrition/ hydration Comments Eating is tiring so w/ depression, may be at risk for inadequate nutrition Recommendations Swallowing Treatment Yes Recommended Solids Regular Recommended Liquids Thin Safety Precautions/Swallowing Remain upright (90 degrees) Recommendations during all oral intake,Small bites and sips when eating, Alternate liquids and solids Medication Recommendations As Tolerated Education Patient/Caregiver Education Described results of evaluation,Patient expressed understanding of evaluation, Patient expressed agreement with goals & treatment plans, Patient expressed understanding of safety precautions,Patient expressed understanding of feeding recommendations,Patient requires further education/ training Goals Short-term Goals 1. Pt will independetly implement safe swallow strategies. 2. Pt will perform swallow exercises in order to improve orapharyngeal function. Long-term Goals 1. Pt will be consistent with HEP to improve and maintain swallow function. 2. Will tolerate regular textures to increase his comfort during eating to WNL.
--- NOTE | 2021-07-14 17:29 | ST.IPDYTX ---
Visit Care Team Role Provider Type Kevin Marie MD Family Provider Non-Staff Primary Care Provider Specialty: Internal Medicine Address: [address] [place] [address], [address] Email: Jatin Bowden MD Attending Provider Physician Referring Provider Specialty: Ear, Nose, Throat Address: [address] [place] [address], [address] Email: [email or web address] BRANCH OFFICER Dysphagia Treatment BRANCH OFFICER Clinical Instructor Line Start: 07/07/21 19:02 Freq: Status: Active Protocol: Document 07/14/21 15:50 SYLVAIN (Rec: 07/14/21 15:51 SYLVAIN [id number]) Clinical Instructor Signature Clinical Instructor Clinical Instructor Yes BRANCH OFFICER Dysphagia Treatment Start: 07/14/21 11:49 Freq: Status: Active Protocol: Document 07/14/21 11:49 EK (Rec: 07/14/21 11:50 EK [id number]) Dysphagia Treatment Session Time Visit Start Time 08:30 Visit Stop Time 09:20 Total Visit Minutes 50 Visit Information Visit Number 03/25 authorized visits Plan of Care Dates 07/07/2021-10/02/21 Insurance Information Medicare Setting Assessment Location Outpatient Care Visit Type Note Type Treatment Note Next Note Type Next Note Type Treatment Note Patient Information Identification Type Name Subjective Observations Pt arrived on time and unaccompanied. Session conducted and note written by student BRANCH OFFICER Tamiko Goyal. Treatment Liquids Trialed Thin Administration Type Cup Single Sip,Self-Feeding Oral Strategies Upright at 90 degrees Pharyngeal Strategies Sitting Upright (90 deg), Effortful Swallow,Mendelsonn Maneuver,Small Bites and Sips Treatment Activities Trialed sips of water throughout the course of the session. One instance of throat clearing following a swallow, pt reported he felt this may have been due to post nasal drip. Education RE normal vs abnormal swallow function was provided orally, with animated video, and pt's MBSS video. Trained pt in exercises to increase airway protection, posterior oral containment, saliva management, pharyngeal clearance. The pt performed all exercises as instructed. Minimal hyolaryngeal elevation was achieved via Tolu maneuver, but the pt indicated that he will practice the maneuver at home. Will monitor and adapt as needed. Assessment Patient Response to Treatment Good Rehab Potential Good Assessment of Improvement The pt demonstrated excellent understanding of all education and training provided today and was able to perform exercises as instructed. He demonstrated good follow through of HEP by reporting that he performed the the saliva management exercises given to him last week 2-3x a day over the course of the last week. Diet Recommendations Recommendations Continue Current Diet Liquids Order Thin Diet Order Regular Medication Recommendations As Tolerated Aspiration Precautions Recommended Precautions Upright at 90 Degrees,Small Bites/Sips,Effortful Swallow Treatment Plan Appropriate for Continued Therapy Yes Therapy Recommendations Continue POC. Dysphagia Goals 1. Pt will independently implement safe swallow strategies. 2. Pt will perform swallow exercises in order to improve orapharyngeal function.
--- NOTE | 2021-07-28 14:24 | ST.IPDYTX ---
Visit Care Team Role Provider Type Kevin Marie MD Family Provider Non-Staff Primary Care Provider Specialty: Internal Medicine Address: [address] [place] [address], [address] Email: Jatin Bowden MD Attending Provider Physician Referring Provider Specialty: Ear, Nose, Throat Address: [address] [place] [address], [address] Email: [email or web address] DIRECTORY CLERK Dysphagia Treatment DIRECTORY CLERK Clinical Instructor Line Start: 07/07/21 19:02 Freq: Status: Active Protocol: Document 07/28/21 14:23 SYLVAIN (Rec: 07/28/21 14:23 SYLVAIN [id number]) Clinical Instructor Signature Clinical Instructor Clinical Instructor Yes DIRECTORY CLERK Dysphagia Treatment Start: 07/14/21 11:49 Freq: Status: Active Protocol: Document 07/28/21 13:16 EK (Rec: 07/28/21 13:30 EK [id number]) Dysphagia Treatment Session Time Visit Start Time 09:30 Visit Stop Time 09:25 Total Visit Minutes 55 Visit Information Visit Number 04/22 authorized visits Plan of Care Dates 07/07/2021-10/02/21 Insurance Information Medicare Setting Assessment Location Outpatient Care Visit Type Note Type Treatment Note Next Note Type Next Note Type Treatment Note Patient Information Identification Type Name Subjective Observations Pt arrived on time and unaccompanied. No changes to report. Session conducted and note written by student DIRECTORY CLERK Tamiko Goyal under DIRECTORY CLERK supervision. Treatment Liquids Trialed Thin Solids Trialed Dysphagia Mechanical, Mechanical Soft Administration Type Cup Single Sip,Self-Feeding Oral Strategies Upright at 90 degrees, Controlled Bite/Sip Size, Alternate Liquids/Solids Pharyngeal Strategies Sitting Upright (90 deg),Tilt Head Left,Tilt Head Right, Small Bites and Sips,Alternate Liquids/Solids Treatment Activities Education was provided RE the potential effects of open mouth breathing. Pt reported that while he has not yet experienced improvement in his swallowing or saliva management, he does sense an overall increase of his awareness while eating. Provided education RE the specific impacts of recommended exercises (e.g. strengthening tongue base to increase epiglottic inversion). Various swallow strategies were trialed but were discontinued with the exception of head turn to the left as pt reported that strategy to be helpful with regular textures. Assessed pt's swallow ability with cheese and diced peaches. No overt signs of penetration/ aspiration were noted. However , it was observed that pt was taking large bites. Provided education RE the need for smaller bites and thorough chewing in order to reduce pharyngeal residue. Pt reported that peaches were easier to swallow, recommended pt add moisture to dry textures and liquid wash then collaborated with pt on ways to implement this recommendation (i.e. adding condiments such as gravy or butter). Assessment Patient Response to Treatment Good Rehab Potential Good Assessment of Improvement Pt reported that he has been following through with HEP and appeared motivated to continue doing so until next session. Head-turn to the left appeared to be mildly beneficial. Pt was also responsive to recommendations for moistening dry textures as well as increasing his awareness of his breathing posture (i.e. breathing through nose instead of mouth) . Diet Recommendations Recommendations Continue Current Diet Liquids Order Thin Diet Order Regular Medication Recommendations As Tolerated Aspiration Precautions Recommended Precautions Upright at 90 Degrees,Small Bites/Sips,Effortful Swallow Treatment Plan Appropriate for Continued Therapy Yes Therapy Recommendations Continue POC. Dysphagia Goals 1. Pt will independently implement safe swallow strategies. 2. Pt will perform swallow exercises in order to improve orapharyngeal function. 3. Pt will tolerate least restrictive diet.
--- NOTE | 2021-08-31 15:08 | ST.IPDYTX ---
Visit Care Team Role Provider Type Kevin Marie MD Family Provider Non-Staff Primary Care Provider Specialty: Internal Medicine Address: [address] [place] [address], [address] Email: Jatin Bowden MD Attending Provider Physician Referring Provider Specialty: Ear, Nose, Throat Address: [address] [place] [address], [address] Email: [email or web address] FIRE COORDINATOR Dysphagia Treatment FIRE COORDINATOR Clinical Instructor Line Start: 07/07/21 19:02 Freq: Status: Active Protocol: Document 08/31/21 14:50 SYLVAIN (Rec: 08/31/21 14:51 SYLVAIN [id number]) Clinical Instructor Signature Clinical Instructor Clinical Instructor Yes FIRE COORDINATOR Dysphagia Treatment Start: 07/14/21 11:49 Freq: Status: Active Protocol: Document 08/31/21 14:29 EK (Rec: 08/31/21 14:46 EK [id number]) Dysphagia Treatment Session Time Visit Start Time 12:30 Visit Stop Time 13:20 Total Visit Minutes 50 Visit Information Visit Number 05/23 authorized visits Plan of Care Dates 07/07/2021-10/02/21 Insurance Information Medicare Setting Assessment Location Outpatient Care Visit Type Note Type Treatment Note Next Note Type Next Note Type Treatment Note Patient Information Identification Type Name Subjective Observations Pt arrived on time and unaccompanied. Pt reported he feels that his swallow function is slightly worse since last session and feels that he is biting his cheek while chewing. Session conducted and note written by student FIRE COORDINATOR Tamiko Goyal under FIRE COORDINATOR supervision. Treatment Liquids Trialed Thin Solids Trialed Puree,Dysphagia Mechanical, Mechanical Soft,Regular Administration Type Cup Single Sip,Self-Feeding Oral Strategies Upright at 90 degrees, Controlled Bite/Sip Size, Alternate Liquids/Solids Pharyngeal Strategies Sitting Upright (90 deg),Tilt Head Left,Tilt Head Right, Small Bites and Sips,Alternate Liquids/Solids Treatment Activities Assessed pt's swallow ability with cheese, pudding, pudding with [place]ia crackers, and crackers. No overt signs of penetration/aspiration were noted. Overall, oral phase was timely and the pudding was swallowed piecemeal. Pt reported that he has been completing the exercises 3-4 times a week. Provided education RE the importance of completing exercises everyday for continuing progress. Trained pt in new exercise to target inner cheek strength. Pt performed smile-pucker and alternating air from cheek to cheek exercise. FIRE COORDINATOR and FIRE COORDINATOR employee communications intern provided skilled feedback for the pt to make his movements bigger and slower in order to fully exercise the facial muscles. Pt was receptive to feedback. Assessment Patient Response to Treatment Fair Rehab Potential Good Assessment of Improvement While pt has been completing the HEP, he has not been performing at the recommended frequency. Suspect if the pt strictly follows HEP, there will be some improvement. If pt continues to not make significant progress, another MBSS may be warranted to fully assess his swallow function and structures. Diet Recommendations Recommendations Continue Current Diet Liquids Order Thin Diet Order Regular Medication Recommendations As Tolerated Aspiration Precautions Recommended Precautions Upright at 90 Degrees,Small Bites/Sips,Effortful Swallow Treatment Plan Appropriate for Continued Therapy Yes Therapy Recommendations Continue POC. Dysphagia Goals 1. Pt will independently implement safe swallow strategies. 2. Pt will perform swallow exercises in order to improve orapharyngeal function. 3. Pt will tolerate least restrictive diet.
--- NOTE | 2021-09-22 17:17 | ST.IPDYTX ---
Visit Care Team Role Provider Type Kevin Marie MD Family Provider Non-Staff Primary Care Provider Specialty: Internal Medicine Address: [address] [place] [address], [address] Email: Jatin Bowden MD Attending Provider Physician Referring Provider Specialty: Ear, Nose, Throat Address: [address] [place] [address], [address] Email: [email or web address] RECORDS ANALYSIS MANAGER Dysphagia Treatment RECORDS ANALYSIS MANAGER Clinical Instructor Line Start: 07/07/21 19:02 Freq: Status: Active Protocol: Document 08/31/21 14:50 SYLVAIN (Rec: 08/31/21 14:51 SYLVAIN [id number]) Clinical Instructor Signature Clinical Instructor Clinical Instructor Yes RECORDS ANALYSIS MANAGER Dysphagia Treatment Start: 07/14/21 11:49 Freq: Status: Active Protocol: Document 09/22/21 17:14 TIFFANIEK (Rec: 09/22/21 17:16 LNK [id number]) Dysphagia Treatment Visit Type Note Type Discharge Summary Treatment Plan Appropriate for Continued Therapy No: Has not been seen since . No more appts scheduled . D/C
== END 2021-09-29 12:55 ==
LOC: SP 12:30
PROVIDERS: Family Provider Internal Medicine; PCP Internal Medicine; Referring Provider Otolaryngology Facial Plastic Surgery; Visit Provider Otolaryngology Facial Plastic Surgery
DX: R13.12 Dysphagia, oropharyngeal phase (principal)
CPT/HCPCS: 92526; 92610

== ENCOUNTER → 2021-09-08 09:08 | Outpatient (CLI) | payer MEDICARE, OTHER, SELFPAY ==
--- NOTE | 2021-09-08 | DI.MRI.S_ITS ---
PROCEDURE: MR HEAD/BRAIN WO/W CON INDICATIONS: TIA/Paresthesia of skin/pharyngeal dysphagia TECHNIQUE: Noncontrast axial T1 spin echo, axial T2 fast spin echo, sagittal and axial FLAIR, coronal T2 fast spin echo, axial gradient echo, axial diffusion and ADC through the brain. After the administration of contrast, axial and coronal and sagittal T1 spin echo with fat saturation through the brain. COMPARISON: None. FINDINGS: Image quality: Excellent. CSF spaces: Basal cisterns are patent. No extra-axial fluid collections. Ventricles are normal in size and shape. Brain: No midline shift. No intracranial bleeds or masses. No abnormal intracranial enhancement. There is cerebral volume loss for age. There is periventricular white matter chronic small vessel ischemic change. The brainstem appears normal. Diffusion-weighted images demonstrate no acute ischemic insults. No chronic ischemic insults. Normal intravascular flow voids are present. Skull and face: Calvarial marrow is normal in signal. Orbits appear normal. A right lens replacement can be seen. Sinuses: Sinuses and mastoids appear clear. IMPRESSION: Brain MRI within normal limits for age, with brain parenchymal volume loss and chronic small vessel ischemic change. No findings of acute or subacute infarction can be seen. No masses or abnormal enhancement can be seen. Dictated by: Genaro Sanon M.D. on 09/08/2021 at 9:20 Approved by: Genaro Sanon M.D. on 09/08/2021 at 9:21
== END ==
PROVIDERS: Family Provider Internal Medicine; PCP Internal Medicine; Referring Provider Internal Medicine; Visit Provider Family Medicine
DX: R13.13 Dysphagia, pharyngeal phase (principal); G45.9 Transient cerebral ischemic attack, unspecified; R20.2 Paresthesia of skin
CPT/HCPCS: 70553; A9579

== ENCOUNTER → 2022-02-18 09:03 | Outpatient (CLI) | payer MEDICARE, OTHER, SELFPAY ==
--- NOTE | 2022-02-18 | DI.MRI.S_ITS ---
PROCEDURE: MR LUMBAR SPINE WO CON INDICATIONS: Low back pain TECHNIQUE: Noncontrast sagittal T1 spin echo and T2 fast echo, sagittal STIR, and T2 fast spin echo through the lumbar spine. In cases with scoliosis, additional coronal T2 fast spin echo may be performed. COMPARISON: [facility], CT, CT CHEST ABDOMEN PELVIS WITH CONTRAST, 05/27/2019, 12:52. [facility] [place], CR, XR LUMBAR SPINE 2 OR 3 VIEWS, 02/16/2022, 10:17. [facility], MR, MR LUMBAR SPINE WITHOUT CONTRAST, 06/20/2018, 8:46. FINDINGS: Image quality: Excellent. Alignment and Curvature: Minimal retrolisthesis can be seen at T12-L1, L1-L2, and L2-L3. Minimal retrolisthesis is seen at L5-S1. Bone Marrow: Marrow is of normal overall signal. Scattered foci are seen, which are hyperintense on T1-weighted and T2-weighted imaging, which are most consistent with benign vertebral body hemangiomas. No acute vertebral body compression fractures. Spinal Cord: Conus medullaris terminates at the L1 level. Visualized cord demonstrates normal signal and size. Paraspinous Soft Tissues: No paravertebral masses. There is partial visualization of a right renal cyst laterally, measuring 2.5 cm. Lower thoracic spine degenerative changes are noted. T12-L1: Moderate loss of disc height is seen. Loss of disc signal is seen. Moderate generalized disc bulge is seen. Facet there is at least moderate left-sided and moderate to severe right-sided neural foraminal narrowing. There is a degree of compression seen upon the exiting nerve roots. Mild to moderate central canal narrowing is seen. When comparison is made with the prior images, these findings are similar. L1-L2: Mild loss of disc height is seen. Loss of disc signal is seen. Moderate disc bulge is seen, which is eccentric to the right. Moderate facet joint hypertrophy is seen. There is moderate to severe bilateral neural foraminal narrowing seen, with an associated a degree of compression seen upon the exiting nerve roots. Mild central canal narrowing is seen. When comparison is made with the prior images, these findings are similar. L2-L3: Moderate to severe loss of disc height and disc signal can be seen. Reactive marrow endplate changes are seen, which demonstrate mixed T1 weighted and T2-weighted signal, and are attributed to a combination of edema and fatty metaplasia (Modic type I and Modic type II changes). Moderate disc bulge is seen, which is eccentric to the right. Moderate facet hypertrophy is seen, left worse than right. There is at least moderate bilateral neural foraminal narrowing seen. There is a degree of compression seen upon the exiting nerve roots. The degree reactive marrow endplate change is progressed compared to 2019. L3-L4: At least moderate loss disc height and disc signal can be seen. Moderate disc bulge is seen, which is eccentric to the left. There is a superimposed central disc protrusion. Prominent bilateral facet hypertrophy can be seen, including a superiorly projected osteophyte on the right, as on series 4, image 6 and on series 5 images 17 and 18. This is better seen as a bony structure on the prior CT dated 05/27/2019 (series 4, image 46). There is moderate to severe bilateral neural foraminal narrowing seen, with an associated a degree of compression seen upon the exiting nerve roots. Moderate central canal narrowing is seen. When comparison is made with the prior images, these findings are similar. L4-L5: Moderate loss of disc height is seen. Loss of disc signal is seen. Moderate disc bulge is seen, which is eccentric to the right. At least moderate facet hypertrophy is seen. There is moderate to severe right-sided neural foraminal narrowing, with a degree of compression upon the exiting right L4 nerve root. There is moderate left-sided neural foraminal narrowing. Mild central canal narrowing is seen. When comparison is made with the prior images, these findings are similar. L5-S1: Moderate to severe loss of disc height and disc signal can be seen. Reactive marrow endplate changes are seen, which demonstrate mixed T1 weighted and T2-weighted signal, and are attributed to a combination of edema and fatty metaplasia (Modic type I and Modic type II changes). Moderate generalized disc bulge is seen. Moderate facet joint hypertrophy is seen. There is moderate to severe bilateral neural foraminal narrowing seen, with an associated a degree of compression seen upon the exiting nerve roots. The central canal is widely patent. When comparison is made with the prior images, these findings are similar. IMPRESSION: Multiple levels of prominent lumbar spine degenerative change are seen. These are similar to 2019. However, there is progression of reactive marrow endplate change at the L2-L3 level. Dictated by: Genaro Sanon M.D. on 02/18/2022 at 9:29 Approved by: Genaro Sanon M.D. on 02/18/2022 at 9:39
== END ==
PROVIDERS: Family Provider Internal Medicine; PCP Internal Medicine; Referring Provider Physical Medicine & Rehabilitation; Visit Provider Physical Medicine & Rehabilitation
DX: M47.816 Spondylosis without myelopathy or radiculopathy, lumbar region (principal); M47.817 Spondylosis without myelopathy or radiculopathy, lumbosacral region; M54.50 Low back pain, unspecified
CPT/HCPCS: 72148

== ENCOUNTER → 2022-03-23 08:55 | Outpatient (CLI) | payer MEDICARE, OTHER, SELFPAY ==
--- NOTE | 2022-03-23 | DI.RAD.S_ITS ---
PROCEDURE: FL BARIUM SWALLOW W SPEECH INDICATIONS: OROPHARYNGEAL DYSPHAGIA TECHNIQUE: Examination was conducted in conjunction with speech pathology per standard protocol. In the lateral projection, filming was performed of the patient swallowing. AP projection filming may also be performed with patient swallowing. COMPARISON: [facility], , [place] BARIUM SWALLOW W SPEECH, 10/11/2019, 8:04. FINDINGS: Function: The oral preparatory phase appears normal, with proper containment. The subsequent oral propulsive phase, pharyngeal phase, and esophageal phase of swallowing also appear normal with all proffered substances. Trace laryngotracheal penetration. No connie aspiration. 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 Morphology: No cricopharyngeal bar is identified. No cervical esophageal webs. No Zenker's diverticulum. No strictures. IMPRESSION: 1. Follicular pooling of different consistencies. 2. Trace laryngeal penetration. No connie aspiration. 3. Please see speech pathologist's report. Dictated by: Timur Aguilar M.D. on 03/23/2022 at 13:57 Approved by: Timur Aguilar M.D. on 03/23/2022 at 13:59
--- NOTE | 2022-03-24 16:56 | ST.SWALLOW ---
Visit Care Team Role Provider Type Kevin Marie MD Family Provider Physician Primary Care Provider Specialty: Internal Medicine Address: [address] [place] [address], [id number] Email: Yaya Erickson MD Attending Provider Non-Staff Referring Provider Specialty: Medical Address: [address] [place] [address] [id number], [place], [address] Email: Modified Barium Swallow Study [employer] Modified Barium Swallow Study Start: 03/24/22 09:02 Freq: Status: Active Protocol: Document 03/23/22 09:03 LNK (Rec: 03/24/22 09:36 LNK [id number]) Modified Barium Swallow Study Total Time Visit Start Time 09:30 Visit Stop Time 10:15 Total Visit Minutes [address] Erickson Reason for Referral dysphagia Setting Setting Outpatient Care Patient Information Identification Type Name,Date of Patient History Pt was seen for a Modified Barium Swallow Study (MBSS) at the referral of his physician , Dr. Erickson at the [facility]. According to the pt he has been having increasing difficulty swallowing. He described his swallow as food getting stuck in the mid neck area and not going into his esophagus. Pt reported that, with solids, he needs to bring the bolus back up into his mouth several times to rechew and attemopt swallowing again. With liquids, the pt noted that he will sometines choke , but that his cough is not effective (i.e., productive). He added that he has been drooling a lot lately pointing to the lateral corners of his mouth. When asked about previous injuries and/or prior diagnoses, the pt reoprted that the thinks Donte on the Parkinson'e pathway and that he is going through several tests re: PD. Subjective Observations Pt was seated inthefluoroscopic chair with directions andinstructions provided. Pt noted that he has a previous MBS at [facility] 2 years ago, and was familiar withthe procedure. Patient Positioning Position View Lat-A/P Imaging Lateral View Textures Administered Trials Presented Thin Liquid via Spoon,Thin Liquid via Cup,[place] Liquid via Cup,Pudding Thick Liquid via Spoon,Regular Textures, Barium Tablet Oral Phase Source: MBSIMP (TM) (C) Bolus Specific Scoring Grid Lip Closure Minimal Impairment Tongue Control During Bolus Hold Mild Impairment Bolus Prep/Mastication Mild Impairment A/P Lingual Propulsion Delay Yes: A/P propusion delay with solids/ tablet Number of Seconds Delayed (seconds) 120 seconds with tablet Oral Residue Mild Impairment Residue Clearing Minimal Impairment Nasal Regurgitation No Additional Oral Phase Observations OME results indicated pt' structures were WNL. DKS indicated speed and accuracy of structured to be WNL. ORAL PHASE OBSERVATIONS: Mildly impaired. Mild oral residue present which did not clear with subsequent swallows. Increased residue noted following semi-solid and solid trials. A/P lingual propulsion for solid trials was discoordinated, rocking and delayed. With the AP view of the barium tablet, the pt was unable to transport the tablet for approximately 2 minutes. Pharyngeal Phase Source: MBSIMP (TM) (C) Bolus Specific Scoring Grid Delayed Initiation of Pharyngeal Swallow Yes: Bolus head to the pyriform sinus observed x2 Soft Palate Elevation No Impairment (WNL) Tongue Base Strength/Range of Motion Moderate Impairment Residue Along the Tongue Base Yes Clearance of Residue Along Tongue Base Moderate Impairment Laryngeal Elevation Moderate Impairment Anterior Hyoid Movement Moderate Impairment Epiglottic Range of Motion Moderate Impairment Vallecular Residue Yes Clearance of Vallecular Residue Moderate Impairment Laryngeal Vestibular Closure Moderate Impairment Pharyngeal Stripping Wave Moderate Impairment Posterior Pharyngeal Wall Residue Yes Clearance of Posterior Pharyngeal Wall Moderate Impairment Residue Upper Esophageal Sphincter Opening Moderate Impairment Residue in the Pyriform Sinuses No: trace to minimal Esophageal Clearance Upright Position WFL Pharyngoesophageal Backflow Observed No Additional Pharyngeal Phase Observations Moderate reduction in tongue base strength was noted. This weakness negatively impacted hyolaryngeal elevation as well as epiglottal inversion. Inversion of the epiglottis ranged from no inversion to partial inversion with the epiglottis at a horizontal position and the tip curled upward against the posterior pharyngeal wall. Due to incomplete to no epiglottic inversion, penetration was observed with trials of thin liquid (e.g., tsp, small cup sip and with a chin tuck). Chin tuck was implemented to increase airway protection with thin liquids, however, there was no inversion of the epiglottis and increased contrast penetration into the laryngeal vestibule ( Pentration Aspiration Scale=3) . Penetration was observed with liquids x4. No penetration observed with solids. When penetration occurred, the pt was cued to cough (no reflexive cough), which was not effective in clearing residue from laryngx. There was no airway penetration with nectar thick liquids. No tracheal aspiration was observed. For all trials, there was significant valecullar pooling that did not clear despite subsequent swallows and liquid washes. At one point the pt regurgitated the bolus from the valeculla, chewed the bolus and again attempted to swallow. For the solid/semi- solid trials, the UES extension and duration appeared to be restricted. The pt required several swallow attempts r clear the bolus in to the esophagus. liquid wash to clear the valecullar pooling was partially affective. A/P View Textures Administered Trials Presented Thin Liquid via Cup,Barium Tablet A/P View Observations Additional Observations Slowed bolus flow through esophagus and into stomach was observed. Unable to fully assess pharyngeal contraction. Clinical Impressions Dysphagia Type oropharyngeal dysphagia Findings See above oral and pharyngeal observation summaries. These results were compared to those observed in 2019 MBS. For the oral phase, there is a significant decline in the pt' s ability to masticate and propel the bolus to the pharynx. In the 2019 MBS, the pt's oral phase was described as mildly impaired. The results of the current MBS indicate a moderate impairment. Relative to the pharyngeal phase, there are minimal changes observed between the two MBS studies. Recommend that pt consume mechanical soft texture diet with nectar thick liquids with use of swallow strategies to clear pharyngeal residue(s), increase airway protection, and reduce risk for aspiration / aspiration pneumonia. Swallowing therapy is recommended. Rehabilitation Potential Good Patient Appropriate for Therapy Yes Recommendations Diet Liquids Order [place] Diet Order Dysphagia Advanced Medication Recommendation Whole in Carrier,Crushed in Carrier,One at a Time Aspiration Precautions Recommended Precautions Upright at 90 Degrees, Alternate Liquids/Solids,Small Bites/Sips,Double Swallow Treatment Plan Therapy Recommendations Outpatient Speech Therapy,Base of Tongue Exercises, Compensatory Strategy Education Recommended Referrals GI Consult Compensatory Strategies Recommendations Sitting Upright (90 deg), Double Swallow,No Straw, Liquids from Cup,Small Bites and Sips,Alternate Liquids/ Solids
== END ==
PROVIDERS: Family Provider Internal Medicine; PCP Internal Medicine; Referring Provider Otolaryngology; Visit Provider Otolaryngology
DX: R13.12 Dysphagia, oropharyngeal phase (principal); F32.2 Major depressive disorder, single episode, severe without psychotic features; G31.9 Degenerative disease of nervous system, unspecified; F41.1 Generalized anxiety disorder; F43.10 Post-traumatic stress disorder, unspecified; Z91.82 Personal history of military deployment
CPT/HCPCS: 74220; 74230; 92611; 99214

== ENCOUNTER → 2022-12-28 09:58 | Outpatient (CLI) | payer MEDICARE, OTHER, SELFPAY ==
--- NOTE | 2022-12-28 10:33 | DI.RAD.S_ITS ---
PROCEDURE: XR LUMBAR SPINE MIN 4V INDICATIONS: BACK PAIN TECHNIQUE: 5 views of the lumbar spine were acquired, including bilateral oblique views. COMPARISON: None. FINDINGS: Bones: 5 nonrib-bearing vertebrae are present. Mild dextrocurvature of the lumbar spine. Straightening of normal lumbar lordosis. Severe degenerative changes with disc height loss, vacuum disc phenomenon, degenerative endplate changes, spurring and facet arthropathy. No vertebral body compression fractures. No suspicious bony lesions. Partially visualized bilateral hip arthroplasties. Soft tissues: Overlying bowel gas pattern is normal. No suspicious soft tissue calcifications. Oblique images: No definite pars defects. IMPRESSION: Multilevel degenerative changes of the lumbar spine. No compression deformities. Dictated by: Candido Toussaint M.D. on 12/28/2022 at 11:36 Approved by: Candido Toussaint M.D. on 12/28/2022 at 11:38
== END ==
PROVIDERS: Family Provider Internal Medicine; PCP Internal Medicine; Referring Provider Physical Medicine & Rehabilitation; Visit Provider Physical Medicine & Rehabilitation
DX: M48.062 Spinal stenosis, lumbar region with neurogenic claudication (principal); M47.816 Spondylosis without myelopathy or radiculopathy, lumbar region; R26.81 Unsteadiness on feet; M54.9 Dorsalgia, unspecified
CPT/HCPCS: 72110; 99215

== ENCOUNTER 2023-01-19 12:47 | Outpatient (CLI) | payer MEDICARE, OTHER, SELFPAY ==
[2023-01-19 13:20] VITALS: BP 123/66; PULSE 65; RESP 16; TEMP 36.7; O2SAT 96
--- NOTE | 2023-01-19 13:30 | DI.RAD.S_ITS ---
PROCEDURE: PAIN L INTERLAMINAR/CAUDAL INJ INDICATIONS: SPONDYLOSIS COMPARISON: None. FINDINGS: Fluoroscopic spot filming was performed to verify placement of spinal needles at the bilateral L4-5 level(s), as labeled on the films. Appropriate location(s) of the needle tip(s) was confirmed by injection of iodinated contrast. IMPRESSION: Fluoroscopic support for bilateral L4-5 epidural steroid injections. Please see separate procedure note for further details. Dictated by: Jb Serrano M.D. on 01/19/2023 at 16:02 Approved by: Jb Serrano M.D. on 01/19/2023 at 16:08
[2023-01-19 14:10] VITALS: BP 97/65; PULSE 64; RESP 20; O2SAT 98
[2023-01-19] MEDS: BUPIVACAINE 0.25% (PF) VIAL 2 ML INJ (14:13)
[2023-01-19] MEDS: BETAMETHASONE 30 MG/5 ML MDV 6 MG INJ (14:14)
[2023-01-19] MEDS: iopamidoL 15 ML VIAL 3 ML INJ (14:14)
[2023-01-19 14:15] VITALS: BP 108/57; PULSE 63; RESP 20; O2SAT 98
[2023-01-19] MEDS: DEXAMETHASONE 10 MG/ML VIAL INJ (14:15)
[2023-01-19 14:20] VITALS: BP 105/55; PULSE 62; RESP 20; O2SAT 97
--- NOTE | 2023-01-19 14:23 | P.PCN_ITS ---
Date/Time/Diagnoses Date of procedure: 01/19/23 Time of procedure: 14:23 Pre-procedure diagnosis: 1. HNP WITH RADICULAR FEATURES, 2. MULTILEVEL CENTRAL STENOSIS, Post-procedure diagnosis: same Procedure Notes Procedure: 1. FLUOROSCOPICALLY GUIDED CONTRAST CONTROLLED INTERLAMINAR EPIDURAL STEROID INJECTION -L4/5 Indications: Ranjeet is referred by Dr. Marie for treatment of Bilateral Foraminal Stenosis R>L LE symptoms. Physician: Kevin Sotelo Total Fluoroscopy time (seconds): 7 Total sedation minutes: 0 Complications: none Procedure in detail & Post-procedure care: FINDINGS Multilevel Central Spinal Stenosis with Nerve Root Compression DESCRIPTION OF PROCEDURE Fluoroscopically guided, contrast-controlled L4/5 translaminar epidural steroid injection. Following review of allergy and review of potential side effects and complications, including, but not necessarily limited to, infection, allergic reaction, local tissue breakdown, temporary as well as permanent nerve injury, paralysis, stroke and possible , the patient indicated that the patient understood and agreed to proceed. An informed consent document was signed by the patient, witnessed by a nurse, and placed in the patient's chart. Additionally, other treatment options including modalities, medications, and physical therapy were reviewed with the patient. After review of previous anaesthesic history and IV conscious sedation the patient was deemed safe to proceed with today?s procedure with IV conscious sedation as ASA class II designation. Safety time-out was performed to confirm patient ID, procedure to be performed and site of procedure. IV sedation was determined to be unnecessary and thus was not administered by the RN after DO order, titrated to patient comfort during the course of the procedure while the patient remained responsive to all verbal commands In the prone position, following sterile prep and drape of the lumbar region, the L4/5 translaminar space was identified fluoroscopically. The skin was anesthetized via a 25-gauge, 1.5inch needle with 1% lidocaine solution. At this point, a 22-gauge short bevel spinal needle was atraumatically introduced and advanced under fluoroscopic guidance into the region of the L4/5 translaminar space. Depth was confirmed on lateral view. Radiological data, including multiple fluoroscopic views of the lumbar spine, reveal a spinal needle at the L4/5 translaminar space. Lateral views then show placement of the needle in the epidural space. Subsequent views show contrast material flowing superiorly and inferiorly in the epidural space. No vascular or intrathecal uptake is observed. At this point, using loss of resistance technique with saline and air, the epidural space was entered. This was confirmed following negative aspiration with injection of approximately 1.5cc of Isovue 200, showing excellent epidural flow without vascular or intrathecal uptake. At this point, 1cc of 1% lidocaine solution combined with 2cc or 10mg of dexamethasone and 6mg betamethasone was injected without incident. The patient tolerated the procedure well without signs or symptoms of complications prior to transfer to the recovery area continued monitoring without incident. The patient was then transferred to the recovery area where they were observed for an appropriate period of time after the injection. The patient reported a VAS score of 6 prior to the procedure and a post- procedure VAS of 0. POST OP INSTRUCTIONS The patient was provided a Pain Log to continue to record their response to the target-specific procedure prior to follow-up visit with their referring physician. Additionally, specific post-injection care instructions and a contact number to our office were provided if concerns arise regarding possible complications associated with the procedure are suspected.
[2023-01-19 14:25] VITALS: BP 101/62; PULSE 67; RESP 20; O2SAT 97
== END 2023-01-19 14:40 | disposition home or self-care (01) ==
PROVIDERS: Family Provider Internal Medicine; Referring Provider Physical Medicine & Rehabilitation; Visit Provider Physical Medicine & Rehabilitation
DX: M51.16 Intervertebral disc disorders with radiculopathy, lumbar region; M48.061 Spinal stenosis, lumbar region without neurogenic claudication
CPT/HCPCS: 62323; J0702; J1100; J2250; J3490

== ENCOUNTER → 2024-04-08 16:52 | Outpatient (CLI) | payer MEDICARE, OTHER, SELFPAY ==
[2024-04-08 18:14] LABS: Add Manual Diff / Slide Review NO; Basophils Absolute Auto 0 /uL (0-100); Basophils Percent Auto 0.6 % (0-2); Eosinophils Absolute Auto 300 /uL (0-450); Eosinophils Percent Auto 3.3 % (2-4); Hematocrit 41.3 % (41-53); Hemoglobin 13.8 g/dL (13.5-17.5); Lymphocytes Absolute Auto 1900 /uL (1100-4500); Lymphocytes Percent Auto 24.8 % (25-40); Mean Corpuscular HGB Conc 33.5 % (30-36); Mean Corpuscular Hemoglobin 31.7 PG (26-34); Mean Corpuscular Volume 94.6 fL (80-100); Monocytes Absolute Auto 700 /uL (0-900); Monocytes Percent Auto 8.6 % (3-14); Neutrophils Absolute Auto 4900 /uL (1500-7000); Neutrophils Percent Auto 62.7 % (50-75); Platelet Count 181 X10^3/uL (150-400); Red Blood Cell Count 4.36 X10^6/uL (4.5-5.9); Red Cell Distribution Width 14.1 % (11.6-14.8); White Blood Cell Count 7.9 X10^3/uL (4.5-11.0)
[2024-04-08 19:27] LABS: Alanine Aminotransferase 9 IU/L (<50); Albumin 4.1 g/dL (3.5-5.0); Albumin Globulin Ratio 1.9 (1.0-2.8); Alkaline Phosphatase 90 U/L (38-126); Aspartate Aminotransferase 32 IU/L (17-59); BUN Creatinine Ratio 21.3 (6-22); Bilirubin Total 0.8 mg/dL (0.2-1.3); Blood Urea Nitrogen 17 mg/dL (9-20); Calcium 9.4 mg/dL (8.4-10.2); Carbon Dioxide 27 mmol/L (22-32); Chloride 107 mmol/L (98-107); Estimated Glomerular Filt Rate > 60 mL/min (>60); Globulin 2.2 g/dL (1.7-4.1); Glucose 93 mg/dL (80-110); HEMOLYSIS < 15 (0-50); Sodium 139 mmol/L (137-145); Total Protein 6.3 g/dL (6.3-8.2)
[2024-04-08 19:30] LABS: Potassium 4.3 mmol/L (3.4-5.1)
== END ==
PROVIDERS: Family Provider Internal Medicine; Referring Provider Nurse Practitioner Family; Visit Provider Nurse Practitioner Family
DX: I48.21 Permanent atrial fibrillation (principal)
CPT/HCPCS: 36415; 80053; 85025

== ENCOUNTER → 2024-04-29 12:44 | Outpatient (CLI) | payer MEDICARE, OTHER, SELFPAY ==
--- NOTE | 2024-04-29 12:48 | DI.CT.S_ITS ---
PROCEDURE: CT IVP A/P W/WO INDICATIONS: HEMATURIA TECHNIQUE: Optional 5 mm thick noncontrast images acquired from the diaphragm to the symphysis pubis. After the administration of intravenous contrast, 5 mm thick images acquired from the diaphragm to the symphysis pubis after a 10-minute delay. 2 mm thick coronal and sagittal reformats were then performed of the kidneys and ureters. For radiation dose reduction, the following was used: automated exposure control, adjustment of mA and/or kV according to patient size. COMPARISON: None. FINDINGS: Image quality: Diagnostic. Kidneys and Ureters: Both kidneys are normal in size, without hydronephrosis or nephrolithiasis. No perinephric fat stranding. There is normal bilateral renal enhancement. Renal calyces appear normal in morphology when filled with contrast. Opacified portions of both ureters demonstrate normal caliber Bladder: Bladder wall thickness is normal. No calcified bladder stones. OTHER: Lower chest: Unremarkable. Liver: No solid mass. Small cysts. Gallbladder: Several gallstones. Biliary ducts: No biliary dilation. Pancreas: No ductal dilation. Spleen: Size is within normal limits. Adrenal Glands: No adrenal nodules. Stomach and Bowel: Prominent stool in the colon. No small bowel obstruction. Large duodenal diverticulum. Stomach is within normal limits. Peritoneum: No abnormal intraperitoneal fluid. No free air. Ventral Wall: No hernia. Abdominal Nodes: No retroperitoneal or mesenteric adenopathy by size criteria. Vessels: Aorta and inferior vena cava are normal in size. PELVIS: Pelvic Organs: Unremarkable. Pelvic Nodes: No enlarged lymph nodes. Miscellaneous: No inguinal hernias are seen. Bones: No aggressive osseous abnormality. Bilateral hip arthroplasties. Beam hardening artifact. IMPRESSION: 1. No kidney stones. No hydronephrosis. 2. No solid renal mass. No upper urinary tract filling defect. 3. Gallstones. Dictated by: Calixto Tracey M.D. on 04/29/2024 at 14:42 Approved by: Calixto Tracey M.D. on 04/29/2024 at 14:52
== END ==
PROVIDERS: Family Provider Internal Medicine; Referring Provider Family Medicine; Visit Provider Family Medicine
DX: K80.20 Calculus of gallbladder without cholecystitis without obstruction (principal); K76.89 Other specified diseases of liver; R31.9 Hematuria, unspecified
CPT/HCPCS: 74178; Q9967

== ENCOUNTER 2024-11-10 09:46 | Emergency (ER) | payer MEDICARE, OTHER, SELFPAY ==
[2024-11-10] VITALS (11 sets, daily range): BP systolic 104–164; BP diastolic 70–84; PULSE 66–78; RESP 18; TEMP 36.5; O2SAT 66–98; BMI 22.2
--- NOTE | 2024-11-10 10:23 | ED.ABDPAIN ---
HPI - Abdominal Pain General Chief Complaint: Abdominal Pain Stated Complaint: Persistent diarrhea (5days) Time Seen by Provider: 11/10/24 10:09 Source: patient and family Mode of arrival: Ambulatory History of Present Illness HPI narrative: Patient is a 79-year-old male history of Parkinson's atrial fibrillation on Eliquis presenting today with ongoing diarrhea. He reports that he and in many friends went to a house in [place], since then he has had ongoing diarrhea. It has been ongoing for about 5 days. No bloody stools no nausea no vomiting no fever no chills. He actually thought it was getting better and then last night he was up at least 4-5 times. He was able to eat an apple and drink some water this morning. But in general has decreased appetite. Has had ongoing anorexia for some time but now worse. Denies any chest pain palpitations syncope or other symptoms. He also is currently denying any abdominal pain. No recent antibiotics Related Data Home Medications ?Medication ?Instructions ?Recorded ?Confirmed albuterol sulfate 90 mcg/actuation 2 puff inhalation Q6H PRN 04/29/20 12/28/22 aerosol inhaler (Proventil HFA) apixaban 5 mg tablet (Eliquis) 5 mg PO BID 04/29/20 12/28/22 coenzyme Q10 75 mg capsule (Ultra 150 mg PO DAILY 04/29/20 12/28/22 CoQ10) lactobacillus combination no.9 4 4,000 mmu cells PO DAILY 04/29/20 12/28/22 billion cell capsule (Adult 50 Plus Probiotic) latanoprost 0.005 % eye drops 1 drp EYE-BOTH DAILY 04/29/20 12/28/22 metoprolol succinate 25 mg 12.5 mg PO DAILY 04/29/20 12/28/22 tablet,extended release 24 hr multivitamin 1 tab PO DAILY 04/29/20 12/28/22 omeprazole 20 mg capsule,delayed 20 mg PO DAILY 04/29/20 12/28/22 release psyllium husk 0.4 gram capsule 0.4 g PO DAILY 04/29/20 12/28/22 (Fiber (psyllium husk)) carbidopa ER 50 mg-levodopa 200 mg 1 tab PO ONCE PM 12/28/22 12/28/22 tablet,extended release tamsulosin 0.4 mg capsule 0.4 mg PO DAILY 12/28/22 12/28/22 Previous Rx's ?Medication ?Instructions ?Recorded levomefolate calcium 15 mg tablet 15 mg PO DAILY #30 tabs 03/03/21 (L-Methylfolate) bupropion HCl 150 mg 24 hr tablet, 300 mg (2 x 150 mg) PO DAILY #180 11/07/24 extended release tabs mirtazapine 7.5 mg tablet 7.5 mg PO BEDTIME #90 tabs 11/07/24 Allergies Allergy/AdvReac Type Severity Reaction Status Date / Time clams Allergy Intermediate GI Verified 11/10/24 10:06 issues/vomiting Patient History Medical History Gait instability Facet arthropathy, lumbar Spinal stenosis, lumbar region with neurogenic claudication Social History Smoking Status: Never smoker Smoking Status: Never smoker Exam Initial Vital Signs Initial Vital Signs: Vital Signs Pulse Oximetry 97 11/10/24 10:03 GENERAL: Alert pleasant 79-year-old and in no acute distress. HEENT: Head atraumatic,EOMI, pupils reactive, face symmetric, Dry mucous membranes CARDIOVASCULAR: Regular rate and rhythm without murmurs, rubs or gallops. RESPIRATORY: Breath sounds equal bilaterally, no wheezes rales or rhonchi. ABDOMEN: Soft, nontender. Normoactive bowel sounds all 4 quadrants. No guarding or rebound. EXTREMITIES: Normal range of motion, no clubbing or edema. Neurovascularly intact NEUROLOGICAL: Alert and oriented x4.Normal gait and speech. Cranial nerves II through XII grossly intact. SKIN: Warm, dry, no laceration, no petechiae, no rashes or lesions. Course Orders Ordered: ED Orders 11/10/24 10:09 GI Panel (Film Array) Stat 11/10/24 10:20 Complete Blood Count AUTO DIFF Stat Comprehensive Metabolic Panel Stat Lipase Stat Discontinued Medications Sodium Chloride (Normal Saline 0.9%) 1,000 mls @ 1,000 mls/hr IV BOLUS ONE Stop: 11/10/24 11:08 Last Infusion: 11/10/24 11:30 Dose: Infused Documented By: Admin: 11/10/24 10:33 Dose: 1,000 mls/hr Documented By: EB Vital Signs Vital signs: Vital Signs - 8 hr 11/10/24 10:03 11/10/24 10:04 11/10/24 10:04 Temperature Pulse Rate 78 Respiratory Rate Blood Pressure 135/71 Pulse Oximetry 97 98 Oxygen Delivery Method 11/10/24 10:06 11/10/24 10:30 11/10/24 10:30 Temperature 97.7 F Pulse Rate 70 73 Respiratory Rate 18 Blood Pressure 135/71 104/70 Pulse Oximetry 98 96 Oxygen Delivery Method Room Air 11/10/24 11:00 11/10/24 11:01 11/10/24 11:01 Temperature Pulse Rate 69 66 Respiratory Rate Blood Pressure 122/71 Pulse Oximetry 97 98 Oxygen Delivery Method 11/10/24 11:32 11/10/24 11:36 11/10/24 11:36 Temperature Pulse Rate 71 Respiratory Rate Blood Pressure 164/84 H Pulse Oximetry 66 L 98 Oxygen Delivery Method 11/10/24 12:00 11/10/24 12:30 11/10/24 13:00 Temperature Pulse Rate 71 68 70 Respiratory Rate Blood Pressure Pulse Oximetry 97 95 95 Oxygen Delivery Method MDM - Abdominal Pain Lab Data 11/10/24 10:20 11/10/24 10:20 Labs: Lab Results 11/10/24 Range/Units 10:20 WBC 10.2 (4.5-11.0) X10^3/uL RBC 4.29 L (4.5-5.9) X10^6/uL Hgb 13.6 (13.5-17.5) g/dL Hct 40.1 L (41-53) % MCV 93.5 (80-100) fL MCH 31.8 (26-34) PG MCHC 34.0 (30-36) % RDW 13.1 (11.6-14.8) % Plt Count 202 (150-400) X10^3/uL Neut % (Auto) 71.5 (50-75) % Lymph % (Auto) 15.8 L (25-40) % [place] % (Auto) 10.0 (3-14) % Eos % (Auto) 2.3 (2-4) % Baso % (Auto) 0.4 (0-2) % Neut # (Auto) 7300 H (2930-9169) /uL Lymph # (Auto) 1600 (8527-8911) /uL [place] # (Auto) 1000 H (0-900) /uL Eos # (Auto) 200 (0-450) /uL Baso # (Auto) 0 (0-100) /uL Sodium 138 (137-145) mmol/L Potassium 3.9 (3.4-5.1) mmol/L Chloride 106 (98-107) mmol/L Carbon Dioxide 23 (22-32) mmol/L BUN 19 (9-20) mg/dL Creatinine 0.83 (0.66-1.25) mg/dL Estimated GFR > 60 (>60) mL/min BUN/Creatinine Ratio 22.9 H (6-22) Glucose 119 H (70-99) mg/dL Calcium 8.8 (8.4-10.2) mg/dL Total Bilirubin 1.1 (0.2-1.3) mg/dL AST 28 (17-59) IU/L ALT 9 (<50) IU/L Alkaline Phosphatase 82 (38-126) U/L Total Protein 6.8 (6.3-8.2) g/dL Albumin 4.3 (3.5-5.0) g/dL Globulin 2.5 (1.7-4.1) g/dL Albumin/Globulin Ratio 1.7 (1.0-2.8) Lipase 25 (23-300) U/L Point of care testing: Urine Dip Bedside Urine Glucose Negative Bedside Urine Bilirubin - Negative Bedside Urine Ketone - Negative Urine Specific Mckenzie 1.010 Bedside Urine Occult Blood - Negative Bedside Urine pH 6.0 Bedside Urine Protein - Negative Bedside Urine Urobilinogen 0.2 Bedside Urine Nitrite - Negative Bedside Urine Leukocytes - Negative Esterase MDM Narrative Medical decision making narrative: Patient is 79-year-old male history of Parkinson's presenting today ongoing diarrhea. No fever no chills. No nausea or vomiting. Able to tolerate oral fluids some food while. Abdomen is soft nontender. Differential diagnosis viral gastroenteritis bacterial gastroenteritis, C.diff Labs reviewed no leukocytosis no anemia, no electrolyte abnormalities potassium 3.9 no ROWDY creatinine 0.83 glucose 119 bilirubin within normal limits At this time he has no evidence of dehydration or electrolyte abnormality. He is monitored in the ED for number of hours not able to give us a stool sample. Ambulated in the ED without difficulty. Recommend outpatient follow-up and outpatient stool sample Discharge Plan Departure Patient Disposition: Home Clinical Impression: Gastroenteritis Instructions: DI for Viral Gastroenteritis -- Adult Activity Restrictions/Additional Instructions: *You have been diagnosed with gastroenteritis *What to do: At this time increase fluids as tolerated recommended something the electrolytes and sugar. Try and get a stool sample with your primary care provider. *Continue to take medications as directed May try Imodium [id number] as needed *Follow up with your primary care provider in 2-3 days or call [phone] *Return to ER if you should have increased abdominal pain confusion vomiting passing out or any new, worsening or concerning symptoms Prescriptions: No Action omeprazole 20 mg capsule,delayed release(DR/EC) 20 mg PO DAILY Eliquis 5 mg tablet 5 mg PO BID metoprolol succinate 25 mg tablet extended release 24 hr 12.5 mg PO DAILY albuterol sulfate [Proventil HFA] 90 mcg/actuation HFA aerosol inhaler 2 puff inhalation Q6H PRN latanoprost 0.005 % drops 1 drp EYE-BOTH DAILY multivitamin Tablet 1 tab PO DAILY Adult 50 Plus Probiotic 4 billion cell capsule 4,000 mmu cells PO DAILY Rx Instructions: administer with a meal psyllium husk [Fiber (psyllium husk)] 0.4 gram capsule 0.4 g PO DAILY Ultra CoQ10 75 mg capsule 150 mg PO DAILY bupropion HCl 150 mg tablet extended release 24 hr 300 mg PO DAILY Qty: 180 3RF mirtazapine 7.5 mg tablet 7.5 mg PO BEDTIME Qty: 90 3RF levomefolate calcium [L-Methylfolate] 15 mg tablet 15 mg PO DAILY Qty: 30 2RF tamsulosin 0.4 mg capsule 0.4 mg PO DAILY carbidopa-levodopa 50-200 mg tablet extended release 1 tab PO ONCE PM Referrals: Miscellaneous,Doctor, MD [Primary Care Provider, Medical] Stand Alone Forms: Patient Portal/API
[2024-11-10 10:26] LABS: Add Manual Diff / Slide Review NO; Hematocrit 40.1 % (41-53); Hemoglobin 13.6 g/dL (13.5-17.5); Lymphocytes Absolute Auto 1600 /uL (1100-4500); Mean Corpuscular HGB Conc 34.0 % (30-36); Mean Corpuscular Hemoglobin 31.8 PG (26-34); Mean Corpuscular Volume 93.5 fL (80-100); Platelet Count 202 X10^3/uL (150-400)
[2024-11-10] MEDS: SODIUM CHLORIDE 0.9% 1,000 ML 1000 ML IV (10:33)
[2024-11-10 10:38] LABS: Alanine Aminotransferase 9 IU/L (<50); Albumin 4.3 g/dL (3.5-5.0); Albumin Globulin Ratio 1.7 (1.0-2.8); Alkaline Phosphatase 82 U/L (38-126); Blood Urea Nitrogen 19 mg/dL (9-20); Calcium 8.8 mg/dL (8.4-10.2); Carbon Dioxide 23 mmol/L (22-32); Chloride 106 mmol/L (98-107); Estimated Glomerular Filt Rate > 60 mL/min (>60); Globulin 2.5 g/dL (1.7-4.1); Glucose 119 mg/dL (70-99); HEMOLYSIS < 15 (0-50); Lipase 25 U/L (23-300); Potassium 3.9 mmol/L (3.4-5.1); Sodium 138 mmol/L (137-145); Total Protein 6.8 g/dL (6.3-8.2)
== END 2024-11-10 13:10 | disposition home or self-care (01) ==
PROVIDERS: Emergency Provider Emergency Medicine; Family Provider Internal Medicine
DX: K52.9 Noninfective gastroenteritis and colitis, unspecified (principal); Z79.01 Long term (current) use of anticoagulants
CPT/HCPCS: 36415; 80053; 81003; 83690; 85025; 96360; 99284